=== PATIENT | female | born 1980 | race Caucasian/White ===

== ENCOUNTER 2019-06-06 05:17 | Inpatient (IN) | payer OTHER ==
[2019-06-05 08:22] VITALS: BMI 31.7
--- NOTE | 2019-06-05 14:35 | HP ---
REASON FOR ADMISSION: "I'm here to have my Chiari decompression." HISTORY OF PRESENT ILLNESS: Yolanda Bird is a very pleasant 39-year-old woman, who was sent for evaluation of an imaging finding notice and workup for headaches. MR imaging of the brain suggested tightness in the foramen magnum and Chiari malformation and she was sent for neurosurgical opinion. Any time she Valsalva's, she gets excruciating head pain and her vision gets blurry. This can be with lifting heavy objects or bearing down to move large obstacle. She has been seen by Ophthalmology and reportedly had some visual field issues. During her evaluation in our clinic, we thought she had a symptomatic Chiari malformation and recommended surgery for which she has presented today. PAST MEDICAL HISTORY: Abnormal Pap smear, arthritis, asthma allergies, headaches, heart disease, hypertension, and peptic ulcer disease. PAST SURGICAL HISTORY: Left knee surgery, right knee surgery, left rotator cuff repair, , D and C, tubal ligation, and hysterectomy. ADMISSION MEDICATIONS: 1. Hydrochlorothiazide. 2. Claritin. 3. Omeprazole. 4. Aleve. ALLERGIES: NO KNOWN DRUG ALLERGIES. FAMILY HISTORY: The patient's father is alive, but he has diabetes, hypertension, and heart disease. Her mother suffers from diabetes, hypertension, heart disease, and stroke. There is a strong family history of vascular risk factors. SOCIAL HISTORY: Ms. Bird used to smoke cigarettes, but has not had nicotine exposure in quite a number of years. She denies illicit drug use and alcohol use. REVIEW OF SYMPTOMS: Otherwise, negative. PHYSICAL EXAMINATION: Ms. Bird is 5 feet 8 inches. She weighs 220 pounds. Her cognitive function is normal. Her speech is fluent and was without dysarthria. Her cranial nerves were intact on our examination. She had no truncal ataxia. On motor examination, there was no pronator drift or other hint of lateralizing weakness. There are no neglect or any obvious cortical sensory deficits. There is no dermatomal sensory loss. IMAGING FINDINGS: An MRI scan of the brain revealed descent of the cerebellar tonsils about 15 mm into the spinal canal with tightness at the foramen magnum and no CSF space there. IMPRESSION: Chiari I malformation. PLAN: Ms. Bird is here for decompression of Chiari malformation, which we will perform today. We anticipate a hospital stay of 3 days most likely. Informed consent was obtained in the clinic and she has been cleared for anesthesia. Job ID: [id number]
[2019-06-06] MEDS ORDERED: Bupivacaine PF 0.5% 30 ML VIAL ONE (06:11)
[2019-06-06] MEDS ORDERED: Bacitracin Zinc Ointment 30 gm TUBE ONE (06:11)
[2019-06-06] MEDS ORDERED: Thrombin 5000 UNITS/5 ML VIAL ONE ×2 (06:11→10:17)
[2019-06-06] MEDS ORDERED: Fentanyl 100 MCG/2 ML VIAL ONE ×4 (06:14→13:48)
[2019-06-06] MEDS ORDERED: Levofloxacin 500 mg/D5W 100 ml Premix Bag ONE (06:16)
[2019-06-06] MEDS ORDERED: Clindamycin/D5W 900 mg/50 ml Premix Bag ONE (06:16)
[2019-06-06 06:38] LABS: #Basophils 0.1 thou/uL (0.0-0.2); #Eosinphils 0.1 thou/uL (0.0-0.7); #Lymphocytes 2.8 thou/uL (1.20-3.40); #Monocytes 0.7 thou/uL (0.11-0.59); #Neutrophils 3.7 thou/uL (1.40-6.50); %Basophils 1.1 % (0.0-1.0); %Eosinophils 1.6 % (0.0-10.0); %Lymphocytes 38.2 % (21.0-51.0); %Monocytes 8.9 % (0.0-10.0); %Neutrophils 50.3 % (42.0-75.0); Hemoglobin 15.2 g/dL (12.0-16.0); Mean Corpuscular HGB CONC 34.5 g/dL (32.0-36.0); Mean Corpuscular Hemoglobin 30.6 pg (27.0-31.0); Mean Corpuscular Volume 88.7 fL (78.0-98.0); Mean Platelet Volume 8.6 fL (7.4-10.4); Platelet Count 246 thou/uL (130-400); RBC Distribution Width 12.7 % (11.5-14.5); Red Blood Cell (RBC) Count 4.97 mill/uL (4.20-5.40); White Blood Cell (WBC) Count 7.4 thou/uL (4.8-10.8)
[2019-06-06 06:44] LABS: INR-International Normal Ratio 0.9; PTT 33.2 SEC (22.9-36.1); Prothrombin Time 12.1 SEC (12.0-14.7)
[2019-06-06] MEDS ORDERED: Ondansetron HCl/PF 4 MG/2 ML Vial IVP PRN ×2 (06:47→13:10)
[2019-06-06] MEDS ORDERED: Promethazine HCl 25 MG/ML VIAL SLOW IVP PRN ×2 (06:47→13:10)
[2019-06-06] MEDS ORDERED: Promethazine HCl 25 MG/ML VIAL IM PRN ×3 (06:47→13:10)
[2019-06-06 06:58] LABS: Anion Gap 14 mmol/L (10-20); BUN (Urea Nitrogen) 17 mg/dL (7.0-18.7); Calc. Creatinine Clearance 134 mL/min (70-130); Calcium 9.5 mg/dL (7.8-10.44); Carbon Dioxide 26 mmol/L (22-29); Chloride 105 mmol/L (98-107); Estimated GFR-MDRD 74; Glucose 93 mg/dL (70-105); Potassium 3.8 mmol/L (3.5-5.1); Sodium 141 mmol/L (136-145)
[2019-06-06] MEDS ORDERED: Lidocaine 0.5%/Epinephrine 1:200,000 50 ml Vial ONE (07:53)
[2019-06-06] MEDS ORDERED: PHENYLEPHRINE-NS 100 MCG/ML 10 ML SYRINGE ONE ×2 (08:20→12:52)
[2019-06-06] MEDS ORDERED: SUGAMMADEX SODIUM 500 MG/5 ML VIAL ONE (11:39)
[2019-06-06] MEDS ORDERED: ePHEDrine/0.9% NaCl/PF SYRINGE 50 mg/10 ml ONE (12:52)
[2019-06-06] MEDS ORDERED: PROPOFOL 200 MG/20 ML VIAL ONE (12:52)
[2019-06-06] MEDS ORDERED: Dexamethasone 20 MG/5 ML VIAL ONE (12:52)
[2019-06-06] MEDS ORDERED: Succinylcholine Chloride 20 MG/ML 10 ml SYRINGE FS ONE (12:52)
[2019-06-06] MEDS ORDERED: Rocuronium Bromide 10 MG/ML (10ML VIAL) ONE (12:52)
[2019-06-06] MEDS ORDERED: Ondansetron PF 4 MG/2 ML Vial ONE (12:52)
[2019-06-06] MEDS ORDERED: Lidocaine 1% PF 5 ML VIAL ONE (12:52)
[2019-06-06] MEDS ORDERED: hydrALAZINE 20 MG/ML VIAL SLOW IVP PRN (13:06)
[2019-06-06] MEDS ORDERED: Labetalol HCl 100 MG/20 ML VIAL SLOW IVP PRN (13:06)
[2019-06-06] MEDS ORDERED: Ondansetron PF 4 MG/2 ML Vial IVP PRN (13:06)
[2019-06-06] MEDS ORDERED: Promethazine HCl 12.5 MG SUPP PR PRN (13:06)
[2019-06-06] MEDS ORDERED: Fentanyl 100 MCG/2 ML VIAL SLOW IVP PRN (13:11)
[2019-06-06] MEDS ORDERED: diphenhydrAMINE 50 MG/ML VIAL IM PRN (13:36)
[2019-06-06] MEDS ORDERED: Zolpidem Tartrate 5 MG TAB PO PRN (13:36)
[2019-06-06] MEDS ORDERED: Naloxone HCl 0.4 mg/ml Vial IV PRN (13:36)
[2019-06-06] MEDS ORDERED: diphenhydrAMINE 50 MG/ML VIAL IVP PRN (13:36)
[2019-06-06] MEDS ORDERED: diphenhydrAMINE 25 MG CAP PO PRN (13:36)
--- NOTE | 2019-06-06 13:38 | OP ---
DATE OF PROCEDURE: 06/06/2019 CABLE WORKER HELPER: Dontrell Hernandez PA-C PREOPERATIVE INDICATION: Prevent neurological deterioration, treat pain. PREOPERATIVE DIAGNOSIS: Chiari I malformation with Valsalva headaches and visual disturbance with Valsalva. POSTOPERATIVE DIAGNOSIS: Chiari I malformation with Valsalva headaches and visual disturbance with Valsalva. PROCEDURE PERFORMED: Decompressive craniectomy, removal of the arch of C1 durotomy and dural patch graft for decompression of the Chiari malformation, operating microscope. PREOPERATIVE MEDICATION: Clindamycin 900 mg IV and Levaquin 500 mg IV. DRAIN NUMBER: Zero. DRAIN TYPE: None. DESCRIPTION OF PROCEDURE: The patient was brought to the operating room. General endotracheal anesthesia was induced. A Guzman pin and devulcanizer head were attached to the patient's head and the patient was carefully rolled into the prone position with her chest and hips supported by gel-filled chest rolls. The Guzman attachment for the operating table and mobilize the head. Hair was removed from the back of the suboccipital region with electric clippers. The neck was sterilely prepped and draped. We opened a midline incision with a 10 blade knife and controlled bleeding with bipolar and monopolar cautery. We used monopolar cautery to dissect through subcutaneous tissues to the ligamentum nuchae. We incised the ligament in the midline and dissected our way down to the suboccipital bone, the arch of C1 and spinous process and lamina of C2. A self-retaining retractor was placed. We carried the dissection laterally until we were at the lateral masses of C1 and C2 and all the suboccipital musculature was liberated from the occipital bone. We irrigated with bacitracin irrigation. We used a high-speed drill to thin the C1 lamina and then removed it with Kerrison rongeurs. We waxed the bone edges. We then brought a high-speed drill into the field. We used a perforating bit to place travis holes in the posterior fossa. We ensured the dura was free of the undersurface of the bone and then we removed suboccipital bone in a piecemeal fashion from the transverse sinuses all the way to the foramen magnum. We opened widely. We widely opened the foramen magnum until we were flushed with the condyles and could not go any farther laterally. We waxed the bone edges again. We irrigated with bacitracin irrigation. We then used a 15 blade knife through to open the dura. We opened the dura in a Y-shaped fashion with the two arms of the Y over the cerebellar hemispheres and the long root through the foramen magnum. The cerebellar tonsils were markedly compressed and there was thick arachnoid over them at the foramen magnum and extended below where the arch of C1 used to be. We opened the dura, passed to the cerebellar tonsils and we opened the arachnoid over the tonsils. This arachnoid dissection was done under the operating microscope. Under microscopic magnification and using microsurgical techniques, we dissected carefully between the cerebellar hemispheres. We visualized a choroid plexus and the floor of the fourth ventricle. Once we saw CSF egress from the floor of the fourth ventricle around the tonsils and down the spinal canal, we knew we had achieved the decompression we wanted. We turned our attention to patch graft closure. A bovine pericardial patch was brought into the field. It was cut and that was the dural defect that we had created. With a 6-0 Prolene, we closed the dura with our patch graft. This was done in a running fashion. Before the last few stitches were placed, we filled the dura with bacitracin irrigation. We closed the last few sutures and administered a Valsalva. There was no egress of fluid. We irrigated copiously with bacitracin irrigation. We reinforced our dural closure with DuraSeal tissue sealant. We treated the wound with vancomycin powder. We closed the wound in anatomical layers after removing the operating microscope. We applied a sterile dressing. This was a clean case, no contamination. Job ID: [id number]
[2019-06-06] MEDS ORDERED: Communication Order-Pharmacy FS SCH (13:45)
[2019-06-06] MEDS ORDERED: Promethazine HCl 25 MG/ML VIAL ONE (13:51)
[2019-06-06] MEDS: Clindamycin/D5W 900 MG in Premix Bag 1 BAG IVPB SCH ×2 (16:20→19:57)
[2019-06-06] MEDS: Sodium Chloride 0.9% 1,000 ML IV SCH (16:37)
[2019-06-06] MEDS: Ondansetron PF 4 MG/2 ML Vial IVP PRN (19:54)
[2019-06-06] MEDS ORDERED: PROVENTIL INHALER 6.7 G (200 INHALATIONS) INH PRN (20:13)
[2019-06-07] MEDS: Sodium Chloride 0.9% 1,000 ML IV SCH ×2 (00:36→19:07)
[2019-06-07] MEDS: Clindamycin/D5W 900 MG in Premix Bag 1 BAG IVPB SCH (02:09)
[2019-06-07] MEDS: Ondansetron PF 4 MG/2 ML Vial IVP PRN ×4 (04:11→20:25)
[2019-06-07] MEDS ORDERED: Dextrose 50% Abboject 50 ML SYRINGE SLOW IVP PRN (08:46)
[2019-06-07] MEDS ORDERED: Dextrose 5% in Water 1,000 ML IV PRN (08:46)
[2019-06-07] MEDS ORDERED: HumaLOG 300 UNITS/3 ML VIAL SC PRN (08:46)
--- NOTE | 2019-06-07 09:14 | PRG ---
DATE OF SERVICE: Ms. Bird is on the first day of her hospital stay and is postop day #[address] Adan. She has some significant posterior headaches that she would expect after the surgery and has some stiffness in in her neck and shoulder musculature. She is currently on PASSENGER BOOKING CLERK with fentanyl, but does not seem to be using this around the clock. She actually is quite restful according to the nurse who waking her up. Even though she appears comfortable and has been restful, states that she has 10/10 pain. She did have a bout of nausea, but this is improving after Zofran this morning. Vital signs are stable with some very slight tachycardia likely secondary to pain and maybe some anxiety. The patient states she was up in the chair last night briefly. I would like to see her up much more today. We will also transition her from her PASSENGER BOOKING CLERK pump to p.o. medications and transition her to the floor as soon as her pain is a little bit more tolerated. We will also have her ambulate and moving in the hallways with anticipated discharge likely tomorrow. I do not feel that at this time she notes any consultation with therapy other than to better evaluate and teach her gait and mobilization techniques for getting in and out of bed. We will also add Accu-Cheks and mild sliding scale insulin as needed. Job ID: [id number]
[2019-06-07] MEDS: Famotidine 20 MG TAB PO SCH (09:54)
[2019-06-07] MEDS: Amlodipine 5 MG TAB PO SCH (09:54)
[2019-06-07] MEDS: Hydrochlorothiazide 25 MG TAB PO SCH (09:54)
[2019-06-07] MEDS: Loratadine 10 MG TAB PO SCH (09:55)
--- NOTE | 2019-06-07 13:56 | CON ---
DATE OF CONSULTATION: 06/07/2019 Yolanda Bird is a 39-year-old female evaluated in the Critical Care Unit. She underwent surgical procedure for Chiari malformation. Her only complaint is a posterior headache. Apparently, this was discovered during a workup of her headaches. PAST MEDICAL HISTORY: Remarkable for 1. Arthritis. 2. History of asthma. 3. History of hypertension. 4. History of ulcer disease in the past. She has never been hospitalized here. FAMILY HISTORY: Negative for lung disease in early age. SOCIAL HISTORY: Non contributory. REVIEW OF SYSTEMS: 10 point review of systems completed, remarkable only for headache. ALLERGIES: SHE REPORTS ALLERGIES TO TYLENOL, XANAX, ASPIRIN, CODEINE, HYDROCODONE, HYDROMORPHONE, IODINE, MORPHINE, PENICILLIN, DILANTIN, SHELLFISH, SULFA, AND TRAMADOL. PHYSICAL EXAMINATION: GENERAL: She is in no distress. VITAL SIGNS: Afebrile. Heart rate is 107, respiratory rate 16, oximetry is 95 % on room air, blood pressure 139/89. HEENT: Pupils are equal. Sclerae are anicteric. NECK: Supple. LUNGS: Clear. HEART: Regular rhythm. S1, S2 normal. ABDOMEN: Soft and nontender. EXTREMITIES: Without clubbing, cyanosis, or edema. LABORATORY DATA: White count 7.4, hemoglobin 15.2, platelets 246. Electrolytes are normal. IMPRESSION: Status post decompression of Chiari malformation, clinically stable. It is anticipated she may be transferred out of Critical Care Unit. She is doing well with no respiratory issues and no secretion issues. We will sign off on transfer. This is a 70 minute consult, with greater than 50% of time spent on unit coordinating care. Job ID: [id number] [facility]
[2019-06-07] MEDS: Promethazine HCl 25 MG/ML VIAL IM PRN (18:36)
[2019-06-07 18:53] LABS: #Eosinphils 0.1 thou/uL (0.0-0.7); #Lymphocytes 1.5 thou/uL (1.20-3.40); #Monocytes 1.2 thou/uL (0.11-0.59); %Basophils 0.2 % (0.0-1.0); %Eosinophils 0.4 % (0.0-10.0); %Lymphocytes 10.1 % (21.0-51.0); %Neutrophils 81.4 % (42.0-75.0); Mean Corpuscular HGB CONC 31.9 g/dL (32.0-36.0); Mean Corpuscular Hemoglobin 29.8 pg (27.0-31.0); Mean Corpuscular Volume 93.5 fL (78.0-98.0); Platelet Count 224 thou/uL (130-400); RBC Distribution Width 13.3 % (11.5-14.5); Red Blood Cell (RBC) Count 4.69 mill/uL (4.20-5.40); White Blood Cell (WBC) Count 14.8 thou/uL (4.8-10.8)
[2019-06-07 19:16] LABS: ALT (SGPT) 21 U/L (8-55); AST (SGOT) 18 U/L (5-34); Alkaline Phosphatase 84 U/L (40-110); Anion Gap 12 mmol/L (10-20); BUN (Urea Nitrogen) 9 mg/dL (7.0-18.7); Bilirubin, Total 0.5 mg/dL (0.2-1.2); Calc. Creatinine Clearance 156 mL/min (70-130); Calcium 9.2 mg/dL (7.8-10.44); Carbon Dioxide 28 mmol/L (22-29); Chloride 99 mmol/L (98-107); Estimated GFR-MDRD 79; Globulin 3.3 g/dL (2.4-3.5); Glucose 132 mg/dL (70-105); Potassium 4.1 mmol/L (3.5-5.1); Protein, Total 7.3 g/dL (6.0-8.3); Sodium 135 mmol/L (136-145)
--- NOTE | 2019-06-07 20:25 | CON ---
DATE OF CONSULTATION: 06/07/2019 REASON FOR CONSULTATION: Medical comanagement. BRIEF HISTORY OF PRESENT ILLNESS: This is a 39-year-old female with a past medical history of hypertension, diabetes, remote history of seizures in the past, GERD , who was admitted to the hospital for a Chiari malformation decompression. The patient states that she was having chronic headaches, and over the past 2 weeks, she had noticed that her right arm and her right leg was numb. The patient also had reported some dizziness and lightheadedness with ambulation and numbness in her legs with ambulation. She was admitted for further workup. The patient underwent a Chiari 1 malformation decompressive craniectomy with removal of the arch of C1 and a dural patch graft on 06/06. Postoperatively, the patient is complaining of severe headache with nausea. She reports decreased appetite. This morning, the patient had a questionable syncopal event. The patient had ambulated to the bathroom, and while she was urinating, the patient reports that she was feeling flushed, nauseous, and had some chest discomfort. The next thing she remembers she when she woke up was on the toilet. She was told by a nursing staff that she had passed out and possibly had a seizure. According to nursing staff, the patient's head was bobbing, however, they did not notice any arm jerking. They also commented that the patient did not seem postictal and was responsive upon questioning. She also had a second event later in the afternoon with a similar presentation of head bobbing. Neurosurgery does not think that this is a seizure. The patient reports that her last seizure was 10 years ago, and she is not on any prophylactic medication for this. The patient has a history of hypertension and takes hydrochlorothiazide at home and amlodipine. She also reports a history of diabetes, however, she is not on any medication for her diabetes due to severe electrolyte imbalance. PAST MEDICAL HISTORY: Hypertension, type 2 diabetes, acid reflux, asthma. PAST SURGICAL HISTORY: Three C sections, cystoscopy, hysterectomy, tubal ligation, eight knee surgeries, left rotator arthroscopy and left shoulder surgery, cryotherapy for cervical cancer in the past. FAMILY HISTORY: Diabetes and hypertension. SOCIAL HISTORY: The patient lives with her sons who are 17 and 12. She has never smoked and has not drunk alcohol in the past. She denies any illicit drug use. CURRENT INPATIENT MEDICATIONS: 1. Sodium chloride at 75 an hour. 2. Amlodipine 5 mg p.o. daily. 3. Amlodipine 20 mg p.o. q.a.m. 4. Hydrochlorothiazide 12.5 mg p.o. daily. 5. Claritin 10 mg p.o. q.a.m. 6. Hydralazine 5 mg q.15 minute p.r.n. 7. Naloxone 0.2 mg IV q.5 minute p.r.n. 8. Benadryl 25 mg q.3 hours p.r.n. 9. Zofran 4 mg IV q.6 hours p.r.n. 10. Phenergan 12.5 mg p.o. q.4 hours p.r.n. 11. Ambien 5 mg p.o. at bedtime p.r.n. PHYSICAL EXAMINATION: VITAL SIGNS: Temperature 97.9, heart rate 108, respiratory rate 18, O2 saturation 97% on room air, blood pressure 126/86. GENERAL: The patient is alert, awake, and oriented x3. HEENT: The patient is status post craniectomy for Arnold-Chiari malformation. She does have some mild swelling on her head. NEUROLOGIC: Cranial nerves 2 through 12 are intact. The patient has 3/5 strength in her right upper extremity, left upper extremity is 5/5, right lower extremity is 5/5, left lower extremity is 5/5. The patient has diminished sensation to touch on the right upper extremity and the right lower extremity. The patient has decreased range of motion on her right upper extremity. Babinski sign is downgoing on the left, mute on the right. CVS: Regular rate and rhythm with no murmurs, rubs, or gallops. LUNGS: Clear to auscultation bilaterally. ABDOMEN: Obese, soft, nondistended, nontender, positive bowel sounds. EXTREMITIES: No edema. PERTINENT LABORATORY DATA: CBC on 06/07: white blood cell count 14.8, hemoglobin 14.0, hematocrit 43.0, platelet count 224. BMP on 06/07: sodium is 135, glucose 132. LFTs are normal. Rest of BMP is unremarkable. Prolactin : 7.39. ASSESSMENT AND PLAN: This is a 39-year-old female, who was admitted for Arnold-Chiari malformation. She is status post decompressive craniectomy with removal of arch of C1 durotomy and dural patch graft, postop day 2. 1. Arnold-Chiari malformation, status post craniectomy.: - ,management per Neurosurgery. The patient is status post IV clindamycin postoperatively. White blood cell count is up to 14.8, which is most likely expected after surgery. Continue to monitor for fevers. 2. Possible vasovagal syncope - We will check an EKG, most likely this is micturition related syncope. We will check orthostatics given that the patient was dizzy while ambulating. Prolactin level was normal, so this is not likely to be a seizure, however, if concern consists, consider an EEG or neuro consult. 3. Leukocytosis : White blood cell count is up to 14.8. There are no fevers currently. The patient has already received IV clindamycin prophylactically. We will check a UA and chest x-ray. 4. Hypertension: We will continue hydrochlorothiazide and amlodipine. 5. Type 2 diabetes: The patient is on a mild sliding scale. Her blood sugars are ranging from 132 to 173. We will continue with current management. 6. Hyponatremia. The patient's sodium is 135, which is mild. We will continue to monitor. 7. Gastroesophageal reflux disease: Continue Pepcid 20 mg p.o. q.a.m. 8. Asthma : Continue albuterol inhaler q.6 hours p.r.n. Thank you for this consult. We will continue to follow. Please call if there are any further questions. Job ID: [id number] [facility]TDD
[2019-06-07 22:20] LABS: Bacteria/HPF None Seen HPF (None Seen); Bilirubin Negative (Negative); Blood, Urine Negative (Negative); Clarity Clear (Clear); Glucose, Urine (Dipstick) Normal (Negative); Leukocyte Negative Leu/uL (Negative); Nitrite Negative (Negative); Protein, Urine (Dipstick) Negative (Neg-Trace); RBC/HPF 0-3 HPF (0-3); Squamous Epithelial 0-3 HPF (0-3); Urobilinogen Normal mg/dL (Less than 2); WBC/HPF 0-3 HPF (0-3)
--- NOTE | 2019-06-07 23:21 | RAD ---
RADIOGRAPH CHEST 1 VIEW: DATE: 06/07/2019 TIME: 10:51 PM HISTORY: 39-year-old female with leukocytosis COMPARISON: none FINDINGS: Obliquely horizontal band of subsegmental atelectasis or scar across right mid-lower lung zone from h ilum to lateral pleural surface. Effacement of left lateral costophrenic angle, nonspecific. The rest of the visualized lung elliott are clear. Inspiration is shallow with low lung volumes. No pneumo thorax or cardiomegaly. IMPRESSION: No conclusive evidence of pneumonia. Limited study.
[2019-06-08] MEDS: Sodium Chloride 0.9% 1,000 ML IV SCH ×2 (04:25→21:39)
[2019-06-08] MEDS: fentaNYL Citrate/PF 2,000 MCG in Sodium Chloride 0.9% 60 ML IV PRN (05:25)
[2019-06-08] MEDS: Ondansetron PF 4 MG/2 ML Vial IVP PRN (05:41)
--- NOTE | 2019-06-08 09:05 | PRG ---
DATE OF SERVICE: 06/08/2019 Ms. Bird is now postop day #2 [address] Chi[address] Adan. She has again considerable posterior neck pain with some headache, which is to be expected with this type of operation. She is still on CUSTOMER ORDER CLERK, then moved to the floor yesterday. She has had some continuous nausea, but this is treated well with Zofran. There was a concern yesterday about possible seizure event; however, there was no postictal. Thereafter, her prolactin levels drawn immediately after the event were also within normal limits. This may have represented some type of syncopal event or perhaps psychogenic issue, but certainly not true seizure activity. Her incisions this morning are dry, well-healing, nonerythematous, well approximated. Plan today will be to continue to mobilize that she has over the last 24 hours in the halls and to the bathroom with planning towards disposition hopefully for the next day or two. No additional complaints at this time. Job ID: [id number]
[2019-06-08] MEDS: Famotidine 20 MG TAB PO SCH (09:14)
[2019-06-08] MEDS: Hydrochlorothiazide 25 MG TAB PO SCH (09:15)
[2019-06-08] MEDS: Loratadine 10 MG TAB PO SCH (09:15)
[2019-06-08] MEDS: Amlodipine 5 MG TAB PO SCH (09:15)
--- NOTE | 2019-06-08 09:45 | PRG ---
DATE OF SERVICE: 06/08/2019 Ms. Bird is now 2 days status post Chiari decompression. She is transferred from the unit to the floor. She continues to report significant posterior surgical neck pain with headache, which is anticipated given the nature of her surgery. Her incision is clean and dry. She continues use a DISPLAY MECHANIC for pain control. She had an episode yesterday, where she and her mother believe she had had a seizure. After questioning the nurse and further investigation of the events, I do not believe she had a seizure. She was not postictal. She had no loss of consciousness. In my view, this likely represents a pseudo-seizure or some other psychiatric component to her baseline comorbidities. We have encouraged her to mobilize more. We will work toward transitioning her to oral pain medicines, although her allergies make that difficult. Once she is mobilizing well and she has adequate pain control, she can be discharged home. I do not perceive that happening this weekend. Job ID: [id number] MTDD
[2019-06-08 10:17] LABS: Anion Gap 15 mmol/L (10-20); BUN (Urea Nitrogen) 9 mg/dL (7.0-18.7); Calc. Creatinine Clearance 174 mL/min (70-130); Calcium 9.5 mg/dL (7.8-10.44); Carbon Dioxide 28 mmol/L (22-29); Chloride 91 mmol/L (98-107); Estimated GFR-MDRD 89; Glucose 123 mg/dL (70-105); Potassium 3.9 mmol/L (3.5-5.1); Sodium 130 mmol/L (136-145)
[2019-06-08 10:32] LABS: Hemoglobin 13.6 g/dL (12.0-16.0); Mean Corpuscular HGB CONC 34.2 g/dL (32.0-36.0); Mean Corpuscular Hemoglobin 30.8 pg (27.0-31.0); Mean Corpuscular Volume 90.3 fL (78.0-98.0); Platelet Count 222 thou/uL (130-400); RBC Distribution Width 12.9 % (11.5-14.5); Red Blood Cell (RBC) Count 4.41 mill/uL (4.20-5.40); White Blood Cell (WBC) Count 14.6 thou/uL (4.8-10.8)
[2019-06-08] MEDS: Promethazine HCl 25 MG/ML VIAL IM PRN (12:42)
[2019-06-08] MEDS ORDERED: Prochlorperazine 10 MG/2 ML VIAL IVP PRN (13:02)
--- NOTE | 2019-06-08 13:08 | PDOC.HOSPP ---
- Subjective Encounter Date: 06/08/19 Encounter Time: 12:00 Subjective: The patient reports severe burning headache, nausea, dizziness and lightheadedness. Denies floaters. Does have some light sensitivity She states discharge is coming out of her ear. Yesterday she had discharge from her incision but not today. She has history of anaphylaxis to penicillin, but has tolerated cephalexin in the past. She reports allergy to sulfa She still has weakness on her right arm and right leg and is limping while walking - Objective Vital Signs & Weight: Vital Signs (12 hours) Temp Pulse Resp BP BP BP Pulse Ox 06/08/19 12:00 98.6 F 88 16 137/83 06/08/19 09:15 125/77 06/08/19 07:40 98.3 F 80 12 125/77 94 L 06/08/19 05:13 94 L 06/08/19 03:14 98.1 F 106 H 16 143/88 H 94 L Weight Weight 235 lb 10.786 oz Most Recent Monitor Data Heart Rate from ECG 98 NIBP 129/85 NIBP BP-Mean 99 Respiration from ECG 17 SpO2 96 I&O: 06/07/19 06/08/19 06/09/19 06:59 06:59 06:59 Intake Total 1262 914.2 360 Output Total 2945 1480 Balance -1683 -565.8 360 Result Diagrams: 06/08/19 09:51 06/08/19 09:51 Additional Labs: Accuchecks 06/08/19 06/08/19 06/07/19 12:08 06:49 20:08 POC Glucose 153 H 130 H 128 H 06/07/19 15:55 POC Glucose 125 H Hospitalist ROS - Review of Systems Constitutional: denies: fever, chills Cardiovascular: denies: chest pain, palpitations - Medication Medications: Active Medications Generic Name Dose Route Start Last Admin Trade Name Freq PRN Reason Stop Dose Admin Amlodipine Besylate 5 mg 06/07/19 09:00 06/08/19 09:15 Norvasc PO 5 mg DAILY ABBEY Administration Famotidine 20 mg 06/07/19 09:00 06/08/19 09:14 Pepcid PO 20 mg QAM ABBEY Administration Sodium Chloride 1,000 mls @ 75 mls/hr 06/06/19 13:15 06/08/19 04:25 Normal Saline 0.9% IV 1,000 mls .[id number] ABBEY Administration Fentanyl Citrate 2,000 mcg/ 100 mls @ 0 mls/hr 06/06/19 13:36 06/08/19 05:25 Sodium Chloride IV 100 mls INF PRN Administration Pain As Directed Loratadine 10 mg 06/07/19 09:00 06/08/19 09:15 Claritin PO 10 mg QAM ABBEY Administration Ondansetron HCl 4 mg 06/06/19 13:36 06/08/19 05:41 Zofran IVP 4 mg Q6H PRN Administration Nausea/Vomiting Promethazine HCl 12.5 mg 06/06/19 13:36 06/08/19 12:42 Phenergan IM 12.5 mg Q4H PRN Administration Nausea/Vomiting - Exam General Appearance: NAD, awake alert Eye: PERRL, anicteric sclera ENT: normocephalic atraumatic, no oropharyngeal lesions ENT - other findings: Tympanic membrane erythematous bilaterally, bulging on left compared to rig Heart: RRR, no murmur, no gallops, no rubs Respiratory: CTAB, no wheezes, no rales, no ronchi Gastrointestinal: soft, non-tender, non-distended, normal bowel sounds Extremities: no edema Neurological - other findings: RUE 2/5, RLE 4/5, LUE 5/5, LLE 5/5 strength. Dec sensation right side Hosp A/P - Plan This is 39 year old female with Arnold chiari malformation s/p craniectomy POD2 Arnold Chiari Malformation s/p decompressive craniectomy day 2 - care and pain management per neurosurgery - PTOT Acute otitis media bilateral - patient's ears tender on inspection with bilateral erythema - given penicillin anaphylaxis, will start on doxycycline - WBC improved to 14.6 Migraine - patient with history of migraine, requesting migraine cocktail today - ordered toradol, benadryl, phenergan Hyponatremia - sodium has dropped to 130. HCTZ discontinued, will continue to monitor - check serum and urine osmolarity, rule out SIADH given brain surgery Possible vasovagal syncope - no further events today. EKG showed NSR with nonspecific T wave abnormality -UA negative, chest Xray unremarkable -orthostatic BP negative Type II Diabetes - continue sliding scale insulin GERD: continue pepcid Asthma: continue albuterol prn Dispo: umang FLORES
[2019-06-08] MEDS ORDERED: Doxycycline 100 MG CAP PO SCH (13:15)
[2019-06-08] MEDS ORDERED: Ketorolac Tromethamine 30 MG/ML VIAL IVP SCH (13:15)
[2019-06-08] MEDS: Doxycycline 100 MG CAP PO SCH (21:37)
[2019-06-09] MEDS ORDERED: Naproxen 500 MG TAB PO SCH (02:15)
[2019-06-09] MEDS ORDERED: Naproxen 500 MG TAB PO PRN (06:28)
[2019-06-09] MEDS: Ondansetron PF 4 MG/2 ML Vial IVP PRN ×3 (07:49→21:32)
[2019-06-09] MEDS: Famotidine 20 MG TAB PO SCH (07:52)
[2019-06-09] MEDS: Loratadine 10 MG TAB PO SCH (07:53)
[2019-06-09] MEDS: Amlodipine 5 MG TAB PO SCH (07:53)
[2019-06-09] MEDS: Sodium Chloride 0.9% 1,000 ML IV SCH (08:00)
--- NOTE | 2019-06-09 08:15 | PRG ---
DATE OF SERVICE: I saw Yolanda Bird in the hospital room this morning. She is 3 days out from Chiari decompression. Pain control was a major issue over the weekend. She reports a migraine that has started yesterday, but does not describe any preceding neurological events leading to her migraine. She said her headache was severe enough that limited her activity and that she was nauseated from it. Overnight, I do not see any fevers recorded. Blood pressures have been between the 110s and 140s maximum. Most of the readings are between the 110s to 120s. Examination is normal this morning. Pelon asked for Aleve/naproxen for pain control. So as long as she is well hydrated and we are following chemistry panel on a regular basis , I think it is reasonable to try. I did encourage her to move as progressive motion and activity will speed her recovery. I am going to add orders for more frequent Zofran doses. We will encourage mobilization and have her screen for inpatient rehab. Job ID: [id number] MTDD
[2019-06-09] MEDS: Doxycycline 100 MG CAP PO SCH ×2 (09:31→20:27)
[2019-06-09 10:15] LABS: Mean Corpuscular HGB CONC 31.2 g/dL (32.0-36.0); Mean Corpuscular Hemoglobin 27.8 pg (27.0-31.0); Mean Platelet Volume 8.2 fL (7.4-10.4); Platelet Count 274 thou/uL (130-400); RBC Distribution Width 12.7 % (11.5-14.5); Red Blood Cell (RBC) Count 5.04 mill/uL (4.20-5.40); White Blood Cell (WBC) Count 10.3 thou/uL (4.8-10.8)
[2019-06-09 10:24] LABS: Anion Gap 11 mmol/L (10-20); BUN (Urea Nitrogen) 11 mg/dL (7.0-18.7); Calc. Creatinine Clearance 164 mL/min (70-130); Calcium 10.4 mg/dL (7.8-10.44); Carbon Dioxide 37 mmol/L (22-29); Chloride 91 mmol/L (98-107); Estimated GFR-MDRD 84; Glucose 88 mg/dL (70-105); Potassium 3.8 mmol/L (3.5-5.1); Sodium 135 mmol/L (136-145)
[2019-06-09] MEDS: Promethazine 25 MG TAB PO PRN (10:30)
[2019-06-09] MEDS ORDERED: Ketorolac Tromethamine 30 MG/ML VIAL IVP SCH (13:30)
--- NOTE | 2019-06-09 15:24 | PDOC.HOSPP ---
- Subjective Encounter Date: 06/09/19 Encounter Time: 12:00 Subjective: She continues to report headaches. She says she was seen by ana lilia who thought it was spinal headache because headache was worst with laying down. SHe still has nausea, difficulty eating food due to the headache. Toradol helped for a few minutes She has taken propranolol in the past for migraine and was wondering about trying it but discussed it may lower her blood pressure Ears are no longer draining. She states antibiotics are helping with her earache - Objective Vital Signs & Weight: Vital Signs (12 hours) Temp Pulse Resp BP BP Pulse Ox 06/09/19 11:01 97.6 F 105 H 16 112/79 99 06/09/19 08:00 98.2 F 102 H 20 157/96 H 97 06/09/19 07:53 90 06/09/19 05:05 94 L Weight Weight 235 lb 10.786 oz Most Recent Monitor Data Heart Rate from ECG 98 NIBP 129/85 NIBP BP-Mean 99 Respiration from ECG 17 SpO2 96 I&O: 06/08/19 06/09/19 06/10/19 06:59 06:59 06:59 Intake Total 914.2 860 Output Total 1480 Balance -565.8 860 Result Diagrams: 06/09/19 09:41 06/09/19 09:41 Additional Labs: Accuchecks 06/09/19 06/09/19 06/08/19 11:45 05:50 19:52 POC Glucose 122 H 114 H 122 H 06/08/19 16:13 POC Glucose 115 H Hospitalist ROS - Review of Systems Constitutional: denies: fever, chills Respiratory: denies: cough, dry - Medication Medications: Active Medications Generic Name Dose Route Start Last Admin Trade Name Freq PRN Reason Stop Dose Admin Amlodipine Besylate 5 mg 06/07/19 09:00 06/09/19 07:53 Norvasc PO 5 mg DAILY ABBEY Administration Doxycycline Hyclate 100 mg 06/08/19 21:00 06/09/19 09:31 Vibramycin PO 100 mg BID ABBEY Administration Famotidine 20 mg 06/07/19 09:00 06/09/19 07:52 Pepcid PO 20 mg QAM ABBEY Administration Sodium Chloride 1,000 mls @ 75 mls/hr 06/06/19 13:15 06/09/19 08:00 Normal Saline 0.9% IV Not Given .[id number] ABBEY Fentanyl Citrate 2,000 mcg/ 100 mls @ 0 mls/hr 06/06/19 13:36 06/08/19 05:25 Sodium Chloride IV 100 mls INF PRN Administration Pain As Directed Ketorolac Tromethamine 30 mg 06/09/19 13:30 06/09/19 14:10 Toradol IVP 06/09/19 15:30 30 mg NOW ABBEY Administration Loratadine 10 mg 06/07/19 09:00 06/09/19 07:53 Claritin PO 10 mg QAM ABBEY Administration Ondansetron HCl 4 mg 06/06/19 13:36 06/09/19 14:10 Zofran IVP 4 mg Q6H PRN Administration Nausea/Vomiting Promethazine HCl 12.5 mg 06/06/19 13:06 06/09/19 10:30 Phenergan PO 12.5 mg Q4H PRN Administration Nausea/Vomiting Promethazine HCl 12.5 mg 06/06/19 13:36 06/08/19 12:42 Phenergan IM 12.5 mg Q4H PRN Administration Nausea/Vomiting - Exam General Appearance: NAD, awake alert Eye: PERRL, anicteric sclera ENT: normocephalic atraumatic, no oropharyngeal lesions ENT - other findings: tenderness to tragus pull and push Neck: supple, symmetric, no JVD, no thyromegaly Heart: RRR, no murmur, no gallops, no rubs Respiratory: CTAB, no wheezes, no rales, no ronchi Gastrointestinal: soft, non-tender, non-distended, normal bowel sounds Extremities: no cyanosis, no clubbing, no edema Hosp A/P - Plan This is 39 year old female with Arnold chiari malformation s/p craniectomy POD2 Arnold Chiari Malformation s/p decompressive craniectomy day 3 - care and pain management per neurosurgery - PTOT Acute otitis media bilateral - patient's ears tender on inspection with bilateral erythema - given penicillin anaphylaxis, continue doxycycline day 2 - WBC down to 10.3 Migraine Headache - spinal vs postop - patient with history of migraine, on naproxen by neurosurgery. Given one dose IV toradol - on benadryl and phenergan prn - if headache spinal related, consideration of epidural blood patch vs neuro consult? Defer to neurosurgery and anasthesia Hyponatremia - likely dehydration - sodium improved to 135 with IV fluids - hold diuretic Possible vasovagal syncope - no further events today. EKG showed NSR with nonspecific T wave abnormality -UA negative, chest Xray unremarkable -orthostatic BP negative Type II Diabetes - continue sliding scale insulin GERD: continue pepcid Asthma: continue albuterol prn Dispo: per NS
[2019-06-09] MEDS ORDERED: Polyethylene Glycol 3350 17 GM Packet PO PRN (18:57)
[2019-06-09] MEDS: fentaNYL Citrate/PF 2,000 MCG in Sodium Chloride 0.9% 60 ML IV PRN (18:58)
[2019-06-10] MEDS: Promethazine HCl 25 MG/ML VIAL IM PRN (00:03)
[2019-06-10 05:31] LABS: Anion Gap 12 mmol/L (10-20); BUN (Urea Nitrogen) 16 mg/dL (7.0-18.7); Calc. Creatinine Clearance 167 mL/min (70-130); Calcium 9.5 mg/dL (7.8-10.44); Carbon Dioxide 28 mmol/L (22-29); Chloride 99 mmol/L (98-107); Estimated GFR-MDRD 85; Glucose 105 mg/dL (70-105); Potassium 3.5 mmol/L (3.5-5.1); Sodium 135 mmol/L (136-145)
[2019-06-10] MEDS: Sodium Chloride 0.9% 1,000 ML IV SCH ×2 (05:46→09:59)
--- NOTE | 2019-06-10 07:14 | PRG ---
DATE OF SERVICE: 06/10/2019 I saw Ms. Bird on rounds this morning. She is asleep as I entered the room, but was easily aroused from sleep. She has a washcloth on her forehead. Complains of headache that is a bit difficult to control, but she was able to walk more yesterday than she had over the entire weekend. She made it to the hallway four times, each time moving a bit farther than the previous walk. Her sublingual Zofran, at twice a dose previously given, seemed to help. Among the electronically recorded vital signs, I do not see any fevers. Blood pressures have been recorded between 110s and 150s. I do not find any new neurological deficits. Her incision is well-approximated. The plan is to mobilize Ms. Bird more. I think she is holding her head still and allowing the muscle spasm to worsen. She can slowly move it [id number] which will help. Her head pain is worse lying down and better up. This is not the pattern of a spinal headache and a blood patch will not help. Postoperative pain management Chiari I decompression are one of the most difficult management issues in our practice and that we were appreciative of the help with the Pain Management Service. The goal today is to slowly transition off IV pain medicine to oral medicine. Her intolerance to so many medications makes this a difficult task indeed. If she cannot become independent for activities of daily living in a reasonable amount of time, then a short stay in rehab is recommended. Hopefully, she can be approved for that. Job ID: [id number] MTDD
[2019-06-10] MEDS: Loratadine 10 MG TAB PO SCH (09:34)
[2019-06-10] MEDS: Famotidine 20 MG TAB PO SCH (09:34)
[2019-06-10] MEDS: Amlodipine 5 MG TAB PO SCH (09:35)
--- NOTE | 2019-06-10 10:35 | EKG ---
Test Reason : ROUTINE Blood Pressure : / mmHG Vent. Rate : 091 BPM Atrial Rate : 091 BPM P-R Int : 144 ms QRS Dur : 086 ms QT Int : 334 ms P-R-T Axes : 066 044 005 degrees QTc Int : 410 ms Normal sinus rhythm with sinus arrhythmia Nonspecific T wave abnormality Abnormal ECG No previous ECGs available Confirmed by TABITHA SIMS (2) on 06/10/2019 10:35:28 AM Referred By: ELAINE BLAIR Confirmed By:TABITHA SIMS
[2019-06-10] MEDS ORDERED: Fentanyl 100 MCG/2 ML VIAL SLOW IVP PRN (12:16)
[2019-06-10] MEDS: Ondansetron PF 4 MG/2 ML Vial IVP PRN ×2 (12:18→22:19)
[2019-06-10] MEDS: Doxycycline 100 MG CAP PO SCH ×2 (12:27→21:29)
--- NOTE | 2019-06-10 13:08 | PDOC.HOSPP ---
- Subjective Encounter Date: 06/10/19 Encounter Time: 12:00 Subjective: Headache: The patient is doing better. States that she hit her head on a door while walking with PT and is having terrible headache because of that. No photophobia, nausea or vomiting. THe patient has walked four times with physical therapy today and is doing better. Naproxen helps some but she only gets it once a day. She states anasthesia will be taking her off the OYSTERMAN and transitioning over to oral pain medications Otitis media: Ear pain is better, but still painful on the left ear compared to the right. Continues to have numbness on the right side. She does have history of allergies and takes claritin religiously, but states she is not sure if it works anymore. HTN: patient states that her BP was low today, she did not receive her antihypertensives. SHe says she takes them at home prn. - Objective Vital Signs & Weight: Vital Signs (12 hours) Temp Pulse Resp BP BP BP Pulse Ox 06/10/19 12:09 97.8 F 104 H 20 119/88 94 L 06/10/19 09:35 92 98/86 06/10/19 08:30 98 06/10/19 07:20 97.8 F 92 18 98/86 98 06/10/19 03:44 97.8 F 101 H 18 94/60 96 Weight Weight 235 lb 10.786 oz Most Recent Monitor Data Heart Rate from ECG 98 NIBP 129/85 NIBP BP-Mean 99 Respiration from ECG 17 SpO2 96 I&O: 06/09/19 06/10/19 06/11/19 06:59 06:59 06:59 Intake Total 860 1060 Output Total 100 Balance 860 960 Result Diagrams: 06/09/19 09:41 06/10/19 04:40 Additional Labs: Accuchecks 06/10/19 06/10/19 06/09/19 11:14 05:30 20:46 POC Glucose 118 H 100 117 H 06/09/19 16:45 POC Glucose 108 Hospitalist ROS - Review of Systems Constitutional: denies: fever, chills Cardiovascular: denies: chest pain, palpitations - Medication Medications: Active Medications Generic Name Dose Route Start Last Admin Trade Name Freq PRN Reason Stop Dose Admin Amlodipine Besylate 5 mg 06/07/19 09:00 06/10/19 09:35 Norvasc PO Not Given DAILY ABBEY Doxycycline Hyclate 100 mg 06/08/19 21:00 06/10/19 12:27 Vibramycin PO 100 mg BID ABBEY Administration Famotidine 20 mg 06/07/19 09:00 06/10/19 09:34 Pepcid PO 20 mg QAM ABBEY Administration Sodium Chloride 1,000 mls @ 75 mls/hr 06/06/19 13:15 06/10/19 09:59 Normal Saline 0.9% IV Not Given .[id number] ABBEY Loratadine 10 mg 06/07/19 09:00 06/10/19 09:34 Claritin PO 10 mg QAM ABBEY Administration Ondansetron HCl 4 mg 06/06/19 13:36 06/10/19 12:18 Zofran IVP 4 mg Q6H PRN Administration Nausea/Vomiting Promethazine HCl 12.5 mg 06/06/19 13:06 06/09/19 10:30 Phenergan PO 12.5 mg Q4H PRN Administration Nausea/Vomiting Promethazine HCl 12.5 mg 06/06/19 13:36 06/10/19 00:03 Phenergan IM 12.5 mg Q4H PRN Administration Nausea/Vomiting - Exam General Appearance: NAD, awake alert Eye: PERRL, anicteric sclera ENT: normocephalic atraumatic, no oropharyngeal lesions ENT - other findings: patient has frontal, and max sinus tenderness and on ear Neck: no JVD Heart: RRR, no murmur, no gallops, no rubs Respiratory: CTAB, no wheezes, no rales, no ronchi Gastrointestinal: soft, non-tender, non-distended, no palpable masses Extremities: no cyanosis, no clubbing, no edema Neurological - other findings: RUE 2/5 strength, RLE 5/5. Diminished sensation RUE and RLE Musculoskeletal: normal tone, normal strength, no muscle wasting Hosp A/P - Plan This is 39 year old female with Arnold chiari malformation s/p craniectomy POD2 Arnold Chiari Malformation s/p decompressive craniectomy day 4 - care and pain management per neurosurgery - PTOT - patient to ambulate 4-5 times per day Acute otitis media bilateral - continue doxycycline day 3, for total 7 days Hypertension - will decrease amlodipine to 2.5 mg daily Allergies - on claritin 10 mg daily. Will add zyrtec 5 mg qpm Migraine - patient with history of migraine, on naproxen by neurosurgery. Will increase to BID naproxen - on benadryl and phenergan prn Hyponatremia - likely dehydration - sodium 135, continue holding diuretic Possible vasovagal syncope - no further events. EKG showed NSR with nonspecific T wave abnormality -UA negative, chest Xray unremarkable -orthostatic BP negative Type II Diabetes - continue sliding scale insulin, controlled GERD: continue pepcid Asthma: continue albuterol prn Dispo: per NS
[2019-06-10] MEDS: Naproxen 500 MG TAB PO SCH (21:28)
[2019-06-10] MEDS: Loratadine 5 MG/5 ML UDCUP PO SCH (22:20)
[2019-06-11] MEDS: Sodium Chloride 0.9% 1,000 ML IV SCH ×2 (00:28→12:35)
--- NOTE | 2019-06-11 07:46 | PRG ---
DATE OF SERVICE: 06/11/2019 Ms. Bird is 5 days out from Chiari I decompression. I do not see an IV pole next to her, so she is off her IV pain medication. She tells me she has had injections of Ultram. All her vital signs have been stable since her admission. Her blood pressure is down compared to readings over the past few days. Her neurological function is quite good. I have recommended that Ms. Bird continue to move her head. Continue therapy and when she has pain well controlled on oral analgesics only, she can be discharged home. Job ID: [id number]
[2019-06-11] MEDS: traMADol HCl 50 MG TAB PO PRN ×3 (08:43→21:01)
[2019-06-11] MEDS: Naproxen 500 MG TAB PO SCH ×2 (08:44→20:53)
[2019-06-11] MEDS: Loratadine 10 MG TAB PO SCH (08:44)
[2019-06-11] MEDS: Famotidine 20 MG TAB PO SCH (08:44)
[2019-06-11] MEDS: Doxycycline 100 MG CAP PO SCH ×2 (08:44→20:54)
[2019-06-11] MEDS: Ondansetron ODT 8 MG TAB SL PRN (09:09)
[2019-06-11 10:18] LABS: Hemoglobin 13.2 g/dL (12.0-16.0); Mean Corpuscular HGB CONC 33.7 g/dL (32.0-36.0); Mean Corpuscular Hemoglobin 30.7 pg (27.0-31.0); Mean Corpuscular Volume 91.2 fL (78.0-98.0); Mean Platelet Volume 7.9 fL (7.4-10.4); Platelet Count 256 thou/uL (130-400); RBC Distribution Width 12.7 % (11.5-14.5)
[2019-06-11] MEDS: Amlodipine 5 MG TAB PO SCH (10:19)
[2019-06-11 10:44] LABS: Anion Gap 15 mmol/L (10-20); BUN (Urea Nitrogen) 13 mg/dL (7.0-18.7); Calc. Creatinine Clearance 156 mL/min (70-130); Calcium 9.1 mg/dL (7.8-10.44); Carbon Dioxide 30 mmol/L (22-29); Chloride 97 mmol/L (98-107); Estimated GFR-MDRD 79; Glucose 91 mg/dL (70-105); Potassium 4.1 mmol/L (3.5-5.1); Sodium 138 mmol/L (136-145)
[2019-06-11] MEDS: Promethazine 25 MG TAB PO PRN (13:11)
--- NOTE | 2019-06-11 15:33 | PDOC.HOSPP ---
- Subjective Encounter Date: 06/11/19 Encounter Time: 15:31 Subjective: The patient continues to have severe headache from hitting her head yesterday. She still has left ear pain, feels there is fluid in there that is about a rupture. She has nerve pain in her legs, wants to try gabapentin but wasn't sure if she was allergic - Objective Vital Signs & Weight: Vital Signs (12 hours) Temp Pulse Resp BP BP BP Pulse Ox 06/11/19 11:39 98.1 F 102 H 16 114/81 92 L 06/11/19 10:19 98 119/86 06/11/19 08:43 94 L 06/11/19 07:20 97.6 F 98 16 119/86 94 L 06/11/19 04:26 97.9 F 92 16 97/62 95 Weight Weight 235 lb 10.786 oz Most Recent Monitor Data Heart Rate from ECG 98 NIBP 129/85 NIBP BP-Mean 99 Respiration from ECG 17 SpO2 96 I&O: 06/10/19 06/11/19 06/12/19 06:59 06:59 06:59 Intake Total 1060 1375 Output Total 100 Balance 960 1375 Result Diagrams: 06/11/19 10:11 06/11/19 10:11 Additional Labs: Accuchecks 06/11/19 06/11/19 06/10/19 10:11 06:16 20:57 POC Glucose 91 94 106 06/10/19 15:13 POC Glucose 102 Hospitalist ROS - Review of Systems Constitutional: denies: fever, chills - Medication Medications: Active Medications Generic Name Dose Route Start Last Admin Trade Name Chao PRN Reason Stop Dose Admin Amlodipine Besylate 2.5 mg 06/11/19 09:00 06/11/19 10:19 Norvasc PO Not Given DAILY ABBEY Doxycycline Hyclate 100 mg 06/08/19 21:00 06/11/19 08:44 Vibramycin PO 100 mg BID ABBEY Administration Famotidine 20 mg 06/07/19 09:00 06/11/19 08:44 Pepcid PO 20 mg QAM ABBEY Administration Fentanyl 50 mcg 06/10/19 12:16 06/10/19 18:17 Sublimaze SLOW IVP 50 mcg Q1H PRN Administration BREAKTHRU PAIN Loratadine 10 mg 06/07/19 09:00 06/11/19 08:44 Claritin PO 10 mg QAM ABBEY Administration Loratadine 5 mg 06/10/19 21:00 06/10/19 22:20 Claritin Oral Solution PO 5 mg QPM ABBEY Administration Naproxen 500 mg 06/10/19 21:00 06/11/19 08:44 Naprosyn PO 500 mg BID ABBEY Administration Ondansetron HCl 4 mg 06/06/19 13:36 06/10/19 22:19 Zofran IVP 4 mg Q6H PRN Administration Nausea/Vomiting Ondansetron HCl 8 mg 06/09/19 06:24 06/11/19 09:09 Zofran Odt SL 8 mg QIDPRN PRN Administration Nausea/Vomiting Promethazine HCl 12.5 mg 06/06/19 13:06 06/11/19 13:11 Phenergan PO 12.5 mg Q4H PRN Administration Nausea/Vomiting Promethazine HCl 12.5 mg 06/06/19 13:36 06/10/19 00:03 Phenergan IM 12.5 mg Q4H PRN Administration Nausea/Vomiting Sodium Chloride 10 ml 06/06/19 13:06 06/10/19 18:19 Flush - Normal Saline IVF 10 ml PRN PRN Administration Saline Flush Tramadol HCl 100 mg 06/10/19 12:15 06/11/19 15:10 Ultram PO 100 mg Q6H PRN Administration Pain - Exam General Appearance: NAD, awake alert Eye: PERRL, anicteric sclera ENT: normocephalic atraumatic, no oropharyngeal lesions ENT - other findings: left tympanic membrane erythema with possible mild fluid. Right tymp erythe Neck: supple, no JVD Neck - other findings: surgical incisions on head Heart: RRR, no murmur, no gallops, no rubs Respiratory: CTAB, no wheezes, no rales, no ronchi Gastrointestinal: soft, non-tender, non-distended, normal bowel sounds Extremities: no cyanosis, no clubbing, no edema Skin: normal turgor, no lesions, no rashes Neurological: cranial nerve grossly intact, no focal deficits Neurological - other findings: RUE 3/5, RLE 3/5. Dec sensation on right arm and right leg Musculoskeletal: normal tone, normal strength, no muscle wasting Hosp A/P - Plan This is 39 year old female with Arnold chiari malformation s/p craniectomy POD2 Arnold Chiari Malformation s/p decompressive craniectomy day 5 - care and pain management per neurosurgery - PTOT - patient to ambulate 4-5 times per day Acute otitis media bilateral - continue doxycycline day 4, for total 7 days - check CT sinus due to persistent ear pain/sinus congestion Migraine - patient with history of migraine, on naproxen by neurosurgery. Continue naproxen [address] head due to worsening headache - on benadryl and phenergan prn Hypertension - will decrease amlodipine to 2.5 mg daily - d/c IV fluids Allergies - on claritin 10 mg daily. Continue zyrtec 5 mg qpm Hyponatremia - resolved Possible vasovagal syncope - no further events. EKG showed NSR with nonspecific T wave abnormality -UA negative, chest Xray unremarkable -orthostatic BP negative Type II Diabetes - continue sliding scale insulin, controlled GERD: continue pepcid Asthma: continue albuterol prn Dispo: per NS
[2019-06-11] MEDS ORDERED: Gabapentin 100 MG CAP PO SCH (15:45)
--- NOTE | 2019-06-11 17:43 | CT ---
Exam: Head CT without contrast HISTORY: Headache, after hitting head on door. Postoperative patient. Simple craniectomy. COMPARISON: none FINDINGS: Hemorrhage: No intraparenchymal hemorrhage or extra-axial hematoma. Brain parenchyma: Cortical brown-white matter differentiation is preserved. No mass effect or midline shift. Basilar cisterns are patent. Postsurgical change: Occipital craniectomy. There is fluid and air at the operative site, presumed to be postoperative. Possibility of a CSF leak is less favored but cannot be excluded at this time. Ventricular system: Ventricles and sulci are patent and symmetric. Calvarium: Intact. Sinuses and mastoid air cells: Adequate aeration. IMPRESSION: 1. No acute intracranial process 2. Postoperative changes compatible with occipital craniectomy. Fluid attenuation and air attenuation is presumed to be postoperative. Possibility of a CSF leak is less favored but cannot be excluded.
--- NOTE | 2019-06-11 17:46 | CT ---
CT OF THE PARANASAL SINUSES INDICATON: LEFT EAR PAIN, SINUS PAIN, AND SENSATION OF FLUID: 06/11/19 COMPARISON: None. FINDINGS: The paranasal sinuses are clear. No displaced facial fracture is grossly evident within the visualize d field. The osseous nasal septum is midline. There are mild hugo bullosa seen involving the middle turbinates. Orbital rims are intact. Orbital contents are within normal limits. The visualized aspec ts of the report clerk space and parapharyngeal space is normal appearing. The visualized intracranial contents are unremarkable appearing. The visualized mastoid air cells are clear. The visualized aspec ts of the middle ear cavity are clear. The upper nasopharynx appears within normal limits. Dental ama lgam slightly limits evaluation of the oral cavity. IMPRESSION: No significant paranasal sinus disease. POS: BH
[2019-06-11] MEDS ORDERED: Benzocaine (Dental) 20% 10 gm Tube TOP PRN (18:45)
[2019-06-11] MEDS: Gabapentin 100 MG CAP PO SCH (20:53)
[2019-06-11] MEDS: tiZANidine HCl 4 MG TAB PO SCH (20:53)
[2019-06-11] MEDS: Loratadine 5 MG/5 ML UDCUP PO SCH (20:54)
[2019-06-12] MEDS: traMADol HCl 50 MG TAB PO PRN ×2 (05:24→13:38)
[2019-06-12 06:11] LABS: Anion Gap 11 mmol/L (10-20); BUN (Urea Nitrogen) 12 mg/dL (7.0-18.7); Calc. Creatinine Clearance 164 mL/min (70-130); Carbon Dioxide 33 mmol/L (22-29); Chloride 99 mmol/L (98-107); Estimated GFR-MDRD 84; Glucose 91 mg/dL (70-105); Potassium 3.7 mmol/L (3.5-5.1); Sodium 139 mmol/L (136-145)
--- NOTE | 2019-06-12 07:31 | PRG ---
DATE OF SERVICE: 06/12/2019 Ms. Bird is 6 days out from Chiari decompression. She still has head pain and neck pain as we expected. She has been ambulatory. We gave her Zanaflex and Ultram for pain control yesterday and she has been able to tolerate her pain control regimen with oral medicines only and has not needed IM or IV injections. She is amenable to discharge today. She noted a small amount of drainage from the incision. I do not see any fevers recorded among her electronic vital signs. I reviewed her blood pressures and they are all within normal limits. Her neurological function is good. The incision is well-approximated and completely dry. This morning, the pillow on which she is resting her head is likewise dry and without any drainage whatsoever. Ms. Bird has been instructed on wound care. Followup arrangements have been made already. [place] will be removed on the . At that appointment, we will write orders for outpatient physical and occupational therapy and in the meantime, she is going to walk frequently at home. Our PT and OT team will give her some exercises to do for the next week. Call-in medications will include Ultram and Zanaflex. She is ready for discharge. Job ID: [id number] MTDD
[2019-06-12 08:30] VITALS: TEMP 97.7
[2019-06-12] MEDS: Gabapentin 100 MG CAP PO SCH (08:54)
[2019-06-12] MEDS: Loratadine 10 MG TAB PO SCH (08:54)
[2019-06-12] MEDS: tiZANidine HCl 4 MG TAB PO SCH (08:54)
[2019-06-12] MEDS: Naproxen 500 MG TAB PO SCH (08:54)
[2019-06-12] MEDS: Famotidine 20 MG TAB PO SCH (08:55)
[2019-06-12] MEDS: Amlodipine 5 MG TAB PO SCH (08:55)
[2019-06-12] MEDS: Ondansetron ODT 8 MG TAB SL PRN (08:55)
[2019-06-12] MEDS: Doxycycline 100 MG CAP PO SCH (09:20)
[2019-06-12 11:59] VITALS: BP 98/65
[2019-06-12] MEDS: Promethazine 25 MG TAB PO PRN (13:38)
== END 2019-06-12 14:02 | disposition home or self-care (01) | DRG 26 ==
LOC: SURG A 05:17 → EDSTATUS 14:32 → CCU 15:37 → SJJU 06-07 11:05
PROVIDERS: ADMIT Neurological Surgery; ATTEND Neurological Surgery
PROC: 00NC0ZZ Release Cerebellum, Open Approach (ICD-10-PCS; principal; 2019-06-06)
PROC: 00U20JZ Supplement Dura Mater with Synthetic Substitute, Open Approach (ICD-10-PCS; 2019-06-06)
DX: G93.5 Compression of brain (principal); E87.1 Hypo-osmolality and hyponatremia; F17.210 Nicotine dependence, cigarettes, uncomplicated; J45.909 Unspecified asthma, uncomplicated; M19.90 Unspecified osteoarthritis, unspecified site; H66.93 Otitis media, unspecified, bilateral; G43.909 Migraine, unspecified, not intractable, without status migrainosus; E11.9 Type 2 diabetes mellitus without complications; K21.9 Gastro-esophageal reflux disease without esophagitis; Z79.899 Other long term (current) drug therapy; Z90.710 Acquired absence of both cervix and uterus; Z87.11 Personal history of peptic ulcer disease; Z88.0 Allergy status to penicillin; Z88.6 Allergy status to analgesic agent; Z91.040 Latex allergy status; Z79.1 Long term (current) use of non-steroidal anti-inflammatories (NSAID); Z79.51 Long term (current) use of inhaled steroids
CPT/HCPCS: 36415; 36416; 70450; 71045; 80048; 80053; 81001; 83930; 83935; 84146; 84300; 85025; 85027; 85610; 85730; 86850; 86900; 86901; 93005; 93010; J1100; J1885; J1956; J2001; J2405; J2550; J2704; J3010; J3370; J3490; Q0169; S0020

== ENCOUNTER 2019-06-24 18:34 | Emergency (ER) | payer OTHER ==
[2019-06-24] MEDS ORDERED: diphenhydrAMINE 50 MG/ML VIAL ONE (21:00)
[2019-06-24] MEDS ORDERED: Promethazine HCl 25 MG/ML VIAL ONE (21:00)
[2019-06-24 21:06] LABS: #Basophils 0.1 thou/uL (0.0-0.2); #Eosinphils 0.2 thou/uL (0.0-0.7); #Lymphocytes 1.8 thou/uL (1.20-3.40); #Monocytes 0.4 thou/uL (0.11-0.59); #Neutrophils 3.2 thou/uL (1.40-6.50); %Basophils 1.4 % (0.0-1.0); %Eosinophils 3.7 % (0.0-10.0); %Lymphocytes 31.6 % (21.0-51.0); %Monocytes 7.2 % (0.0-10.0); %Neutrophils 56.1 % (42.0-75.0); Hemoglobin 12.8 g/dL (12.0-16.0); Mean Corpuscular HGB CONC 33.2 g/dL (32.0-36.0); Mean Corpuscular Hemoglobin 29.9 pg (27.0-31.0); Mean Corpuscular Volume 90.1 fL (78.0-98.0); Mean Platelet Volume 8.1 fL (7.4-10.4); Platelet Count 252 thou/uL (130-400); RBC Distribution Width 12.7 % (11.5-14.5); Red Blood Cell (RBC) Count 4.27 mill/uL (4.20-5.40); White Blood Cell (WBC) Count 5.6 thou/uL (4.8-10.8)
[2019-06-24 21:19] LABS: ALT (SGPT) 20 U/L (8-55); AST (SGOT) 14 U/L (5-34); Alkaline Phosphatase 90 U/L (40-110); Anion Gap 10 mmol/L (10-20); BUN (Urea Nitrogen) 14 mg/dL (7.0-18.7); Bilirubin, Total 0.3 mg/dL (0.2-1.2); Calc. Creatinine Clearance 0 mL/min (70-130); Calcium 9.4 mg/dL (7.8-10.44); Carbon Dioxide 29 mmol/L (22-29); Chloride 105 mmol/L (98-107); Estimated GFR-MDRD 66; Globulin 3.2 g/dL (2.4-3.5); Glucose 101 mg/dL (70-105); Potassium 3.7 mmol/L (3.5-5.1); Protein, Total 7.2 g/dL (6.0-8.3); Sodium 140 mmol/L (136-145)
--- NOTE | 2019-06-24 21:24 | CT ---
CT Brain WO Con History: Headache. Craniotomy 3 weeks ago. Comparison: CT brain June 11, 2019 Findings: Findings of suboccipital decompression, relatively recent. Small seroma in the midline. No acute hemorrhage. No midline shift. No mass effect. Sinuses sinuses and mastoids are clear. Impression: Evidence of recent suboccipital craniotomy with similar ovoid fluid collection in the mid line posterior soft tissues likely a seroma although CSF leak is not entirely excluded.
[2019-06-24 21:26] LABS: Pregs Control Background? CLEAR/WHITE (CLR/WHITE); Pregs Control Bar Appear? YES (CONTROL BAR)
[2019-06-24 21:28] LABS: BHCG - Serum POSITIVE (NEGATIVE)
== END 2019-06-24 23:41 | disposition home or self-care (01) ==
LOC: ERS 18:34
DX: G89.18 Other acute postprocedural pain (principal); R51 Headache; R11.2 Nausea with vomiting, unspecified; J45.909 Unspecified asthma, uncomplicated; E11.9 Type 2 diabetes mellitus without complications; I10 Essential (primary) hypertension; Z79.51 Long term (current) use of inhaled steroids; Z79.899 Other long term (current) drug therapy; Z79.891 Long term (current) use of opiate analgesic
CPT/HCPCS: 36415; 70450; 80053; 84702; 84703; 85025; 94760; 96365; 96366; 96375; J1200; J2550

== ENCOUNTER 2019-07-28 17:04 | Emergency (ER) | payer OTHER ==
[2019-07-28] MEDS ORDERED: Naproxen 500 MG TAB ONE (18:49)
== END 2019-07-28 19:00 | disposition home or self-care (01) ==
LOC: ERS 17:04
DX: G97.82 Other postprocedural complications and disorders of nervous system (principal); G96.19 Other disorders of meninges, not elsewhere classified; J45.909 Unspecified asthma, uncomplicated; I10 Essential (primary) hypertension; Z79.899 Other long term (current) drug therapy
CPT/HCPCS: 99284

== ENCOUNTER 2019-07-31 14:18 | Inpatient (IN) | payer OTHER ==
[2019-07-31] MEDS ORDERED: traMADol HCl 50 MG TAB PO PRN ×2 (16:12)
[2019-07-31] MEDS ORDERED: Ondansetron PF 4 MG/2 ML Vial SLOW IVP PRN (16:12)
[2019-07-31] MEDS ORDERED: tiZANidine HCl 4 MG TAB PO PRN (16:12)
[2019-07-31 16:23] LABS: #Basophils 0.1 thou/uL (0.0-0.2); #Eosinphils 0.1 thou/uL (0.0-0.7); #Lymphocytes 2.2 thou/uL (1.20-3.40); #Monocytes 0.5 thou/uL (0.11-0.59); #Neutrophils 3.8 thou/uL (1.40-6.50); %Eosinophils 1.1 % (0.0-10.0); %Lymphocytes 33.1 % (21.0-51.0); %Monocytes 8.1 % (0.0-10.0); %Neutrophils 56.8 % (42.0-75.0); Hemoglobin 13.2 g/dL (12.0-16.0); Mean Corpuscular Hemoglobin 30.5 pg (27.0-31.0); Mean Corpuscular Volume 89.7 fL (78.0-98.0); Mean Platelet Volume 8.6 fL (7.4-10.4); Platelet Count 254 thou/uL (130-400); RBC Distribution Width 12.5 % (11.5-14.5); Red Blood Cell (RBC) Count 4.32 mill/uL (4.20-5.40); White Blood Cell (WBC) Count 6.7 thou/uL (4.8-10.8)
[2019-07-31] MEDS: Sodium Chloride 0.9% 1,000 ML IV SCH (16:39)
[2019-07-31 16:43] LABS: Anion Gap 10 mmol/L (10-20); BUN (Urea Nitrogen) 11 mg/dL (7.0-18.7); Calc. Creatinine Clearance 148 mL/min (70-130); Calcium 9.6 mg/dL (7.8-10.44); Carbon Dioxide 28 mmol/L (22-29); Chloride 106 mmol/L (98-107); Estimated GFR-MDRD 76; Glucose 90 mg/dL (70-105); Potassium 3.9 mmol/L (3.5-5.1); Sodium 140 mmol/L (136-145)
[2019-07-31] MEDS: Gabapentin 100 MG CAP PO SCH (21:41)
--- NOTE | 2019-07-31 22:33 | HP ---
HISTORY OF PRESENT ILLNESS: The patient is a 39-year-old female, who underwent a Chiari decompression by Dr. Adan on 06/06/2019 who has developed pseudomeningocele. The patient reports that following the surgery, she had some initial drainage from the incision, but this was short-lived and following that incision was dry. However, over the past 4 days, she has had significant exacerbation of pseudomeningocele, which is now large and tight. We saw her in our office on 07/29/2019 for similar complaint and at that time, the pseudomeningocele was tapped and approximately 120 mL of clear nilay looking CSF was drained. This flattened out the area quite well, but unfortunately it has returned during office evaluation on 07/31/2019. She also complains of tightness to the neck and ongoing headaches. She has no neurologic deficits. She denies any fever and has no clinical signs of infection. PAST MEDICAL HISTORY: Asthma, chronic headaches, hypertension, GERD. PAST SURGICAL HISTORY: Chiari decompression on 06/06/2019, left knee surgery, right knee surgery, left rotator cuff repair, , D and C, tubal ligation, hysterectomy. SOCIAL HISTORY: The patient does not smoke, drink, or use any drugs. CURRENT MEDICATION LIST: 1. Tizanidine 4 mg p.o. q.6h p.r.n. 2. Hydrochlorothiazide 12.5 mg one tablet p.o. daily. 3. Gabapentin 100 mg p.o. t.i.d. 4. Zofran 8 mg p.o. q.6h p.r.n. 5. Omeprazole 20 mg p.o. b.i.d. 6. Naproxen 3 caps p.o. b.i.d. 7. Loratadine 10 mg p.o. b.i.d. 8. Famotidine 20 mg p.o. daily. 9. Amlodipine 5 mg p.o. daily. 10. Albuterol inhaler 2 puffs p.r.n. ALLERGIES: SHE IS ALLERGIC TO ACETAMINOPHEN, DIAMOX, ALPRAZOLAM, ASPIRIN, CODEINE, HYDROCODONE, IODINE, MORPHINE, PENICILLIN, DILANTIN, SULFA, AND TRAMADOL. REVIEW OF SYSTEMS: Per HPI. PHYSICAL EXAMINATION: GENERAL: The patient is awake, alert, in no acute distress. HEENT: Head, normocephalic and atraumatic. Eyes, PERRLA. Extraocular movements intact. ENT: Oral mucosa is pink, intact, and moist. She has normal voice. NECK: She has a large fluctuant area just underlying the posterior incision consistent with pseudomeningocele. She has pain with range of motion of the neck. CARDIAC: Regular rate and rhythm. PULMONARY: Symmetric chest expansion with no evidence of dyspnea. MUSCULOSKELETAL: Free active range of motion all extremities. No focal motor weakness. NEUROLOGIC: A and O x4. Steady gait. No focal neurologic deficits are appreciated. ASSESSMENT AND PLAN: The patient is a 39-year-old female status post Chiari decompression on 06/06/2019, who has developed a large pseudomeningocele and is having significant pain to the back of the neck as well as headaches. We will plan to treat this with a lumbar drain, which I plan to do with the assistance of IR on 08/01/2019. Hopefully this will resolve her pseudomeningocele formation with time. I discussed this plan with Dr. Jimenez who is in agreement. Job ID: [id number] [facility]
[2019-08-01] MEDS: Sodium Chloride 0.9% 1,000 ML IV SCH ×2 (05:20→22:05)
[2019-08-01] MEDS: Ondansetron PF 4 MG/2 ML Vial SLOW IVP PRN ×2 (09:10→17:40)
[2019-08-01] MEDS: Amlodipine 5 MG TAB PO SCH (09:16)
[2019-08-01] MEDS: Hydrochlorothiazide 25 MG TAB PO SCH (09:16)
[2019-08-01] MEDS: Cyclobenzaprine 10 MG TAB PO PRN (09:16)
[2019-08-01] MEDS: Gabapentin 100 MG CAP PO SCH ×3 (09:16→22:05)
--- NOTE | 2019-08-01 09:50 | SPC ---
Fluoroscopically guided lumbar puncture: DATE: 08/01/2019 HISTORY: 39-year-old female with cervical pseudomeningocele requiring placement of lumbar drainage catheter fo r CSF decompression. TECHNIQUE: Signed informed consent obtained. Patient placed prone on special procedures table. Skin of lower priscila k prepared and draped in usual sterile fashion. 25-gauge needle used to apply buffered lidocaine superficially and deeply. 14-gauge spinal needle advanced from right paramedian L2-3 interlaminar sterling hahn under fluoroscopic guidance into the spinal canal. Upon brisk return of clear CSF, neurosurgery PA Ostio Rapp advanced the lumbar catheter through the spinal needle. She removed the spinal needle over the catheter and left the catheter in place within the intrathecal space. Patient tolerated the procedure well. No complications. IMPRESSION: Successful large caliber lumbar puncture for lumbar drainage catheter placement.
[2019-08-01] MEDS: Ketorolac Tromethamine 30 MG/ML VIAL IVP PRN (09:54)
[2019-08-01] MEDS ORDERED: diphenhydrAMINE 50 MG CAP PO PRN (10:46)
[2019-08-01] MEDS: Morphine 2 MG/ML SYRINGE SLOW IVP PRN ×3 (11:11→17:54)
[2019-08-01] MEDS ORDERED: Morphine 2 MG/ML SYRINGE SLOW IVP SCH (12:55)
[2019-08-01] MEDS: CEFAZOLIN 2 GM in Premix Bag 1 BAG IVPB SCH ×2 (15:13→22:05)
[2019-08-01] MEDS ORDERED: Promethazine HCl 25 MG/ML VIAL IM PRN (19:07)
[2019-08-01] MEDS: Promethazine 25 MG TAB PO PRN (19:58)
[2019-08-01] MEDS ORDERED: diphenhydrAMINE 50 MG/ML VIAL IM PRN (21:25)
[2019-08-01] MEDS ORDERED: Naloxone HCl 0.4 mg/ml Vial IV PRN (21:25)
[2019-08-01] MEDS ORDERED: diphenhydrAMINE 25 MG CAP PO PRN (21:25)
[2019-08-01] MEDS ORDERED: Communication Order-Pharmacy FS SCH (21:30)
[2019-08-01] MEDS: fentaNYL Citrate/PF 2,000 MCG in Sodium Chloride 0.9% 60 ML IV PRN (22:11)
[2019-08-02] MEDS: Promethazine 25 MG TAB PO PRN ×3 (02:52→20:32)
[2019-08-02] MEDS: PROVENTIL INHALER 6.7 G (200 INHALATIONS) INH PRN (03:43)
[2019-08-02] MEDS ORDERED: Loratadine 10 MG TAB PO SCH ×3 (03:45→21:00)
[2019-08-02] MEDS: CEFAZOLIN 2 GM in Premix Bag 1 BAG IVPB SCH ×3 (06:51→22:47)
--- NOTE | 2019-08-02 08:37 | PRG ---
DATE OF SERVICE: 08/02/2019 SUBJECTIVE: I examined the patient on the floor. Lumbar drain was placed yesterday. It has been working appropriately and we are draining 20 mL q.2. The patient did have significant pain control issues with headaches and nausea yesterday. Anesthesia was consulted for a MANAGER OF PMO and she reports significant improvement with this. OBJECTIVE: On exam this morning, the patient is awake, alert, in no acute distress. She still has a fluctuant area to the posterior aspect of the cervical spine just under the incision, but this seems slightly less taut than yesterday. She has free active range of motion of all extremities. No focal motor weakness. ASSESSMENT AND PLAN: We will continue current drainage at 20 mL q.2 hours. She should remain on an Ancef. I anticipate the patient will require continued drainage over the next few days. Job ID: [id number] MTDD
[2019-08-02] MEDS: Gabapentin 100 MG CAP PO SCH ×3 (08:43→20:32)
[2019-08-02] MEDS: Loratadine 10 MG TAB PO SCH ×2 (08:43→20:32)
[2019-08-02] MEDS: Amlodipine 5 MG TAB PO SCH (08:44)
[2019-08-02] MEDS: Hydrochlorothiazide 25 MG TAB PO SCH (08:44)
[2019-08-02] MEDS: Ondansetron PF 4 MG/2 ML Vial SLOW IVP PRN ×2 (08:54→16:16)
[2019-08-02] MEDS: Sodium Chloride 0.9% 1,000 ML IV SCH (10:40)
[2019-08-02] MEDS: Ketorolac Tromethamine 30 MG/ML VIAL IVP PRN (20:35)
[2019-08-03] MEDS: Ketorolac Tromethamine 30 MG/ML VIAL IVP PRN ×3 (02:43→20:10)
[2019-08-03] MEDS: Ondansetron PF 4 MG/2 ML Vial SLOW IVP PRN (02:48)
[2019-08-03] MEDS: Sodium Chloride 0.9% 1,000 ML IV SCH ×3 (03:27→22:48)
[2019-08-03] MEDS: Promethazine 25 MG TAB PO PRN ×2 (06:15→14:16)
[2019-08-03] MEDS: CEFAZOLIN 2 GM in Premix Bag 1 BAG IVPB SCH ×3 (06:16→21:43)
[2019-08-03] MEDS: Gabapentin 100 MG CAP PO SCH ×3 (08:22→20:09)
[2019-08-03] MEDS: Loratadine 10 MG TAB PO SCH ×2 (08:22→20:09)
[2019-08-03] MEDS: Hydrochlorothiazide 25 MG TAB PO SCH (08:22)
[2019-08-03] MEDS: Amlodipine 5 MG TAB PO SCH (08:23)
--- NOTE | 2019-08-03 09:12 | PRG ---
DATE OF SERVICE: 08/03/2019 SUBJECTIVE: I examined the patient on the floor. Yesterday afternoon, the patient was up walking and unfortunately lumbar drain connection to the Jolley was accidentally disconnected. I was able to replace this and secured the drain back to the Jolley after cleaning it thoroughly. It was secured in place with a silk suture. The patient continues to have pain control issues and significant nausea. She is much better when she lays flat on the right side. She does report STARTER CUP POWDER MIXER has been significantly helpful. OBJECTIVE: On exam this morning, the patient is awake, alert, in no acute distress. The fluctuant areas to the posterior aspect of the cervical spine consistent with pseudomeningocele remains although maybe slightly less tight. She has free active range of motion of all extremities. No focal motor weakness. ASSESSMENT AND PLAN: Lumbar drain appears to continue to be working appropriately. We will continue current drain each at 20 mL q.2 hours. We will add a scopolamine patch for her ongoing nausea and we will continue STARTER CUP POWDER MIXER per Anesthesia recommendations. Job ID: [id number] [facility] [place]
[2019-08-03] MEDS: Scopolamine 1.5 mg/72 hour Patch TD SCH (09:15)
--- NOTE | 2019-08-03 10:07 | PRG ---
DATE OF SERVICE: 08/03/2019 SUBJECTIVE: Ms. Bird is generally stable. She continued to have head pain and has had increasing nausea and vomiting. We have initiated a FLATWORK CATCHER because she is intolerant to any oral pain medications. The pseudomeningocele is perhaps slightly less tight, but still quite full. The drain is functional. IMPRESSION AND PLAN: We will continue with lumbar drainage for up to 7 days. Job ID: [id number]
[2019-08-03] MEDS: Ondansetron PF 4 MG/2 ML Vial IVP PRN ×2 (10:59→20:12)
[2019-08-03] MEDS: PROVENTIL INHALER 6.7 G (200 INHALATIONS) INH PRN ×2 (11:10→20:24)
[2019-08-03] MEDS: fentaNYL Citrate/PF 2,000 MCG in Sodium Chloride 0.9% 60 ML IV PRN (12:48)
[2019-08-03] MEDS: diphenhydrAMINE 50 MG/ML VIAL IVP PRN ×2 (15:33→21:42)
[2019-08-04] MEDS: Ketorolac Tromethamine 30 MG/ML VIAL IVP PRN ×3 (06:12→18:18)
[2019-08-04] MEDS: CEFAZOLIN 2 GM in Premix Bag 1 BAG IVPB SCH ×3 (06:13→22:06)
[2019-08-04] MEDS: diphenhydrAMINE 50 MG/ML VIAL IVP PRN ×4 (06:33→20:08)
--- NOTE | 2019-08-04 07:02 | PRG ---
DATE OF SERVICE: 08/04/2019 I saw Yolanda Bird in her hospital room this morning. She was admitted last week for pseudomeningocele. A lumbar drain has been placed. There is less tension on the posterior neck, but the headache is unchanged. The nausea is worse with the drain than it was before. We will taper off the drain in the coming days. If CSF re-accumulates, we can either wait until the body seals off the pseudomeningocele, which it will eventually, or we can place a DEVICE PROCESSING ENGINEER shunt, or a lumboperitoneal shunt. For now, Ms. Bird is hopeful that this will take care of her current problem. Job ID: [id number]
[2019-08-04] MEDS: Hydrochlorothiazide 25 MG TAB PO SCH (08:25)
[2019-08-04] MEDS: Amlodipine 5 MG TAB PO SCH (08:25)
[2019-08-04] MEDS: Loratadine 10 MG TAB PO SCH ×2 (08:26→20:08)
[2019-08-04] MEDS: Ondansetron PF 4 MG/2 ML Vial IVP PRN ×3 (08:26→20:09)
[2019-08-04] MEDS: Gabapentin 100 MG CAP PO SCH ×3 (08:26→20:07)
[2019-08-04] MEDS: Promethazine 25 MG TAB PO PRN ×2 (10:27→17:20)
[2019-08-04] MEDS ORDERED: Chloraseptic Spray 180 ml Bottle PO PRN (12:38)
[2019-08-04] MEDS: fentaNYL Citrate/PF 2,000 MCG in Sodium Chloride 0.9% 60 ML IV PRN (15:01)
[2019-08-04] MEDS ORDERED: Heparin 1,000 UNITS/ML VIAL ONE (15:08)
[2019-08-04] MEDS: Sodium Chloride 0.9% 1,000 ML IV SCH (16:08)
[2019-08-04] MEDS: Artificial Tears 18 DROP/0.9 ML EA EYE PRN (20:38)
[2019-08-05] MEDS: diphenhydrAMINE 50 MG/ML VIAL IVP PRN ×4 (00:01→20:05)
[2019-08-05] MEDS: Ondansetron PF 4 MG/2 ML Vial IVP PRN ×4 (04:02→22:17)
[2019-08-05] MEDS: CEFAZOLIN 2 GM in Premix Bag 1 BAG IVPB SCH ×3 (06:02→22:18)
[2019-08-05] MEDS: Promethazine 25 MG TAB PO PRN ×4 (06:23→20:05)
--- NOTE | 2019-08-05 07:09 | PRG ---
DATE OF SERVICE: 08/05/2019 Ms. Bird still has some nausea and vertigo when she moves quickly. Her headache is still present. She has not had a fever since she has been in the hospital. Her blood pressures have been in normal range. Her neurological examination is unchanged. There was no CSF leakage from her neck. There is still some fullness in the neck and a change in the CSF drainage rate did not make much of a difference in her symptoms. We are going to try to continue our CSF diversion for now. We are slowly weaning her off that CSF drainage to see if she can tolerate going without it. If she cannot, then we have two surgical options, one is revision of the wound with exploration to find a leak of the CSF and close it and the other option is shunting or some combination thereof. She is not especially excited about another operation, but willing to undergo one if it should help her. Eventually, the pseudomeningocele will go away. Job ID: [id number]
[2019-08-05] MEDS: Gabapentin 100 MG CAP PO SCH ×3 (08:13→20:05)
[2019-08-05] MEDS: Hydrochlorothiazide 25 MG TAB PO SCH (08:13)
[2019-08-05] MEDS: Amlodipine 5 MG TAB PO SCH (08:13)
[2019-08-05] MEDS: Loratadine 10 MG TAB PO SCH ×2 (08:13→20:05)
[2019-08-05] MEDS: Ketorolac Tromethamine 30 MG/ML VIAL IVP PRN ×3 (08:17→20:23)
[2019-08-05] MEDS: Sodium Chloride 0.9% 1,000 ML IV SCH ×2 (08:22→18:17)
[2019-08-05] MEDS: PROVENTIL INHALER 6.7 G (200 INHALATIONS) INH PRN (11:28)
[2019-08-05 14:09] VITALS: BMI 34.0
[2019-08-05] MEDS: fentaNYL Citrate/PF 2,000 MCG in Sodium Chloride 0.9% 60 ML IV PRN (14:25)
[2019-08-05] MEDS: D5W-AA 4.25% with LYTES 1,000 ML BAG IV SCH (17:00)
[2019-08-05] MEDS: Artificial Tears 18 DROP/0.9 ML EA EYE PRN ×2 (17:01→20:09)
[2019-08-06] MEDS: D5W-AA 4.25% with LYTES 1,000 ML BAG IV SCH ×2 (04:24→16:08)
[2019-08-06] MEDS: Ondansetron PF 4 MG/2 ML Vial IVP PRN ×3 (04:37→16:14)
[2019-08-06] MEDS: Ketorolac Tromethamine 30 MG/ML VIAL IVP PRN (04:37)
[2019-08-06] MEDS: CEFAZOLIN 2 GM in Premix Bag 1 BAG IVPB SCH ×3 (06:12→22:31)
[2019-08-06] MEDS: Promethazine 25 MG TAB PO PRN ×2 (06:54→18:45)
[2019-08-06] MEDS: diphenhydrAMINE 50 MG/ML VIAL IVP PRN ×2 (06:54→18:45)
--- NOTE | 2019-08-06 07:01 | PRG ---
DATE OF SERVICE: 08/06/2019 Ms. Bird still has some nausea, vertigo, and headaches. She still has no fevers while in the hospital. White blood cells have been normal. Blood pressure has been optimal. Her neurological exam is unchanged. There was no CSF leak from her neck, but continues to complain of stiffness more than yesterday with a decrease in CSF drainage. Due to the increased symptoms, we will obtain a fluid culture and sent it to microbiology. We are going to continue the CSF diversion for now. She is stating that she would like one of the two surgical options. One is the revision of the wound exploration to find a CSF leak and close it. The second option is shunting. She understands that the pseudomeningocele will eventually go away, but she just cannot tolerate the headaches and the neck stiffness. Job ID: [id number]
[2019-08-06] MEDS: fentaNYL Citrate/PF 2,000 MCG in Sodium Chloride 0.9% 60 ML IV PRN (08:19)
[2019-08-06] MEDS: Scopolamine 1.5 mg/72 hour Patch TD SCH (08:21)
[2019-08-06] MEDS: Gabapentin 100 MG CAP PO SCH ×3 (08:22→20:20)
[2019-08-06] MEDS: Hydrochlorothiazide 25 MG TAB PO SCH (08:22)
[2019-08-06] MEDS: Loratadine 10 MG TAB PO SCH ×2 (08:22→20:20)
[2019-08-06] MEDS: Amlodipine 5 MG TAB PO SCH (08:22)
[2019-08-06] MEDS: Sodium Chloride 0.9% 1,000 ML IV SCH ×2 (08:38→20:33)
--- NOTE | 2019-08-06 08:53 | PRG ---
DATE OF SERVICE: 08/06/2019 I saw Yolanda Bird in her hospital room this morning. She continues her lumbar drainage albeit at a lower rate than previously. She is getting quite frustrated with her postural headaches and some nausea as she turns her head. She has an interesting pseudomeningocele that developed in a delayed fashion after her Chiari decompression. It has not come through the skin and we were trying to control with lumbar drainage. She is frustrated with this modality of treatment and honestly there is still a significant amount of fluid collected in the suboccipital region. Surgical intervention for this could include shunting and/or dural patch revision. She is interested in both of these and would like a definitive procedure in spite of increased risk done as soon as possible. Plan is to take two separate CSF cultures, make sure they were negative at 48 hours at least and then perform the surgery as soon as possible to get her out of the hospital and recovering away from the hospital facility. If our 2nd cultures drawn tomorrow, 48 hours will be sometime Sunday that we get the result and Sunday would be the earliest possible point which we can do an operation. Operation will be a CT-guided BrainLAB placement of ventriculoperitoneal shunt with a programmable valve followed by wound revision. It will be 2 surgeries under one anesthesia and given the best chance of this being a definitive procedure. INFORMED CONSENT: I discussed indications, risks, benefits, and alternatives to the above-mentioned surgical intervention. The risks we discussed included, but were not limited to, bleeding, infection, brain damage, seizure, stroke, paralysis, dependence for care, cardiopulmonary complications of anesthesia, abdominal organ injury, abdominal infection, and . She understands all these risks and wants to proceed. We will make arrangements for this to happen. Job ID: [id number] MTDD
--- NOTE | 2019-08-06 09:06 | CT ---
Exam: Head CT without contrast HISTORY: Persistent fluid collection secondary to suboccipital craniotomy. Brain lab protocol. COMPARISON: 06/24/2019 FINDINGS: Hemorrhage: No intraparenchymal hemorrhage or extra-axial hematoma. Brain parenchyma: Cortical brown-white matter differentiation is preserved. No mass effect or midline shift. Basilar cisterns are patent. Ventricular system: Ventricles and sulci are patent and symmetric. Calvarium: Stable suboccipital craniectomy. Sinuses and mastoid air cells: Adequate aeration. Soft tissues: There is an enlarging hypodensity in the posterior occipital and suboccipital soft tiss ues, incompletely evaluated. Small punctate foci of air are noted. Possibility of infected fluid collection cannot be excluded. Incompletely evaluated collection measures 7.6 x 5.7 cm. There is incr eased mass effect upon the posterior aspect of the cerebellum. Small focus of air may be due to the dura and may represent a component of subdural infected fluid collection. IMPRESSION: 1. Enlarging fluid collection, suboccipital in location. Presence of air does raise the possibility o f infected fluid collection. 2. There may be a small component of subdural infected fluid in the midline of the posterior fossa (a xial image 36, series 2). Line 3. Findings were conveyed to Dr. Brenna faith 08/06/2019 9:03 AM Code CR
[2019-08-06] MEDS: Artificial Tears 18 DROP/0.9 ML EA EYE PRN (20:20)
[2019-08-07] MEDS: D5W-AA 4.25% with LYTES 1,000 ML BAG IV SCH ×2 (04:23→16:03)
[2019-08-07] MEDS: Promethazine 25 MG TAB PO PRN (04:29)
[2019-08-07] MEDS: CEFAZOLIN 2 GM in Premix Bag 1 BAG IVPB SCH ×3 (06:51→22:04)
[2019-08-07] MEDS: PROVENTIL INHALER 6.7 G (200 INHALATIONS) INH PRN (07:44)
--- NOTE | 2019-08-07 08:02 | PRG ---
DATE OF SERVICE: 08/07/2019 I saw Yolanda Bird in her hospital room this morning. She complains of low-pressure headache symptoms from continuous CSF drainage. She has not had any fevers. Otherwise, she is well. She is very anxious to have her pseudomeningocele repaired and not have it come back. I explained to her that the most aggressive option would be a revision of her wound, search for a CSF leak and a patch repair along with CSF shunting. She wants the entire procedure done. I discussed the risks of that aggressive option with her yesterday and she wants to proceed. We will need to make sure if CSF culture is negative twice before placing the shunt. The final results of today's culture at 48 hours will be available on Sunday. We will place her on the schedule for surgery on Sunday. Job ID: [id number]
[2019-08-07] MEDS: Hydrochlorothiazide 25 MG TAB PO SCH (08:44)
[2019-08-07] MEDS: Gabapentin 100 MG CAP PO SCH ×3 (08:45→20:10)
[2019-08-07] MEDS: Amlodipine 5 MG TAB PO SCH (08:45)
[2019-08-07] MEDS: Loratadine 10 MG TAB PO SCH ×2 (08:45→20:10)
[2019-08-07] MEDS: diphenhydrAMINE 50 MG/ML VIAL IVP PRN ×2 (11:48→20:22)
[2019-08-07] MEDS: Ondansetron PF 4 MG/2 ML Vial IVP PRN ×2 (11:49→20:12)
[2019-08-07] MEDS: fentaNYL Citrate/PF 2,000 MCG in Sodium Chloride 0.9% 60 ML IV PRN (13:32)
[2019-08-07] MEDS: Promethazine HCl 25 MG/ML VIAL IM PRN (14:53)
[2019-08-07] MEDS: BIOTENE MOUTH SPRAY 44.3 ML PO SCH ×2 (14:54→20:14)
[2019-08-07] MEDS: Sodium Chloride 0.9% 1,000 ML IV SCH ×2 (14:55→20:18)
[2019-08-07] MEDS ORDERED: Docusate 100 MG CAP PO SCH (17:00)
[2019-08-07] MEDS: Cyclobenzaprine 10 MG TAB PO PRN (20:10)
[2019-08-08] MEDS: BIOTENE MOUTH SPRAY 44.3 ML PO SCH ×5 (01:14→23:05)
[2019-08-08] MEDS: D5W-AA 4.25% with LYTES 1,000 ML BAG IV SCH ×2 (04:07→14:38)
[2019-08-08] MEDS: Ondansetron PF 4 MG/2 ML Vial IVP PRN ×3 (04:11→20:22)
[2019-08-08] MEDS: Promethazine HCl 25 MG/ML VIAL IM PRN ×2 (04:41→14:38)
[2019-08-08] MEDS: CEFAZOLIN 2 GM in Premix Bag 1 BAG IVPB SCH ×3 (06:03→21:24)
--- NOTE | 2019-08-08 07:05 | PRG ---
DATE OF SERVICE: 08/08/2019 I saw Ms. Bird in her hospital room this morning. CSF was drawn yesterday for culture. She continues to have nausea when she moves her head too much. Otherwise, when she is lying perfectly still, she has no respiratory or GI symptoms. Her vital signs have been stable. Her neurological examination is as well. There is a fluid collection in the posterior occiput. There is CSF draining from the lumbar drain and is clear. Both cultures have been negative to date, that will be finalized at 48 hours at least by tomorrow afternoon and then on Sunday, we will plan to place a shunt to decrease the CSF pressure and to revise her cervical wound to find any CSF leakage and reinforced with sutures. Job ID: [id number]
[2019-08-08] MEDS: Gabapentin 100 MG CAP PO SCH ×3 (08:43→20:18)
[2019-08-08] MEDS: Docusate 100 MG CAP PO SCH (08:43)
[2019-08-08] MEDS: Loratadine 10 MG TAB PO SCH ×2 (08:44→20:18)
[2019-08-08] MEDS: Amlodipine 5 MG TAB PO SCH (08:44)
[2019-08-08] MEDS: Scopolamine 1.5 mg/72 hour Patch TD SCH (08:45)
[2019-08-08] MEDS: Hydrochlorothiazide 25 MG TAB PO SCH (08:45)
[2019-08-08] MEDS: fentaNYL Citrate/PF 2,000 MCG in Sodium Chloride 0.9% 60 ML IV PRN (09:56)
[2019-08-08] MEDS: Naproxen 500 MG TAB PO SCH (13:51)
[2019-08-08] MEDS: Sodium Chloride 0.9% 1,000 ML IV SCH ×2 (13:51→23:15)
[2019-08-08] MEDS: diphenhydrAMINE 50 MG/ML VIAL IVP PRN (15:53)
[2019-08-08] MEDS: Zolpidem Tartrate 5 MG TAB PO PRN (20:18)
[2019-08-08] MEDS: Cyclobenzaprine 10 MG TAB PO PRN (20:18)
[2019-08-08] MEDS: Artificial Tears 18 DROP/0.9 ML EA EYE PRN (20:19)
[2019-08-08] MEDS: PROVENTIL INHALER 6.7 G (200 INHALATIONS) INH PRN (20:50)
[2019-08-09] MEDS: Naproxen 500 MG TAB PO SCH ×2 (01:05→13:49)
[2019-08-09] MEDS: Promethazine 25 MG TAB PO PRN ×2 (02:30→09:18)
[2019-08-09] MEDS: D5W-AA 4.25% with LYTES 1,000 ML BAG IV SCH ×2 (03:30→17:05)
[2019-08-09] MEDS: CEFAZOLIN 2 GM in Premix Bag 1 BAG IVPB SCH ×3 (05:07→21:22)
--- NOTE | 2019-08-09 07:49 | PRG ---
DATE OF SERVICE: 08/09/2019 I saw Yolanda Bird in her hospital room this morning. Her mother is at the bedside. Ms. Bird is standing and walking around the room. She does not appear to have a significant headache while she is standing. Her vitals have been stable. Her neurological examination is stable as well. Her lumbar drain fell out yesterday after her mother applied some gauze to it. The CSF cultures that we did obtain were negative to date. One is only 24 hours old and when that is finalized, we can safely schedule surgery. Ms. Bird is planned to go to the operating room tomorrow for shunt placement and repair of her suboccipital wound. This gives us the best chance to get her out of the hospital as soon as possible, perhaps Sunday. Job ID: [id number]
[2019-08-09] MEDS: Hydrochlorothiazide 25 MG TAB PO SCH (08:59)
[2019-08-09] MEDS: Amlodipine 5 MG TAB PO SCH (08:59)
[2019-08-09] MEDS: Cyclobenzaprine 10 MG TAB PO PRN ×2 (09:18→21:24)
[2019-08-09] MEDS: Gabapentin 100 MG CAP PO SCH ×3 (09:18→21:24)
[2019-08-09] MEDS: Loratadine 10 MG TAB PO SCH ×2 (09:18→21:26)
[2019-08-09] MEDS: BIOTENE MOUTH SPRAY 44.3 ML PO SCH ×3 (09:19→18:45)
[2019-08-09] MEDS: Docusate 100 MG CAP PO SCH (09:19)
[2019-08-09] MEDS: fentaNYL Citrate/PF 2,000 MCG in Sodium Chloride 0.9% 60 ML IV PRN (15:09)
--- NOTE | 2019-08-09 15:11 | SPC ---
LEFT UPPER EXTREMITY PICC LINE PLACEMENT WITH ULTRASOUND GUIDANCE: HISTORY: TPN. Infection. EXPOSURE: 0.2 minutes. 1563 mGy*^cm2. FINDINGS: Successful left upper cavity PICC line placement with ultrasound guidance. Distal tip is in the right atrium. 44 cm trim length. TECHNIQUE: Consent obtained to perform a left upper extremity PICC line with ultrasound guidance. The left arm w as prepped and draped in a sterile fashion. 1% lidocaine, buffered with sodium bicarbonate was used for anesthesia. Under ultrasound guidance, a 22-gauge spinal needle was used to cannulate the brachia l vein. A 0.018 guidewire was advanced through the needle to the level of the superior vena cava. Under fluoroscopy, the wire was advanced into the inferior vena cava to document venous access. Wire was subsequently pulled back to the right atrium. Tract dilatation was performed. Dual lumen 5 Turkish catheter was advanced over the wire. Distal tip is in the right atrium. 44 cm trim length. IMPRESSION: Successful left upper extremity PICC line placement with ultrasound guidance. Transcribed Date/Time: 08/09/2019 3:19 PM
[2019-08-09] MEDS: Sodium Chloride 0.9% 1,000 ML IV SCH (15:43)
[2019-08-09] MEDS: Promethazine HCl 25 MG/ML VIAL IM PRN ×2 (17:03→21:41)
--- NOTE | 2019-08-09 17:03 | ULT ---
EXAM: Right upper extremity venous ultrasound HISTORY: Right upper extremity pain and edema COMPARISON: None TECHNIQUE: Multiplanar grayscale and color Doppler images were obtained in a right upper extremity ve nous ultrasound. Spectral analysis of the Doppler waveforms were performed. FINDINGS: The internal jugular vein demonstrates normal compression and flow without evidence of thrombus. The subclavian vein demonstrates normal flow and augmentation without evidence of thrombus. The axillary and brachial veins demonstrate normal compression, flow, and augmentation without eviden ce of thrombus. The venous structures distal to the elbow are patent without thrombus. The cephalic and basilic veins are patent. IMPRESSION: No evidence of DVT.
[2019-08-09] MEDS: Ondansetron PF 4 MG/2 ML Vial IVP PRN (17:28)
[2019-08-09] MEDS: PROVENTIL INHALER 6.7 G (200 INHALATIONS) INH PRN (19:10)
[2019-08-09] MEDS: Zolpidem Tartrate 5 MG TAB PO PRN (21:24)
[2019-08-09] MEDS: diphenhydrAMINE 50 MG/ML VIAL IVP PRN (21:40)
[2019-08-10] MEDS: Ondansetron PF 4 MG/2 ML Vial IVP PRN ×2 (00:04→21:36)
[2019-08-10] MEDS: Naproxen 500 MG TAB PO SCH ×2 (00:04→16:21)
[2019-08-10] MEDS: BIOTENE MOUTH SPRAY 44.3 ML PO SCH ×5 (00:05→23:21)
[2019-08-10] MEDS: diphenhydrAMINE 50 MG/ML VIAL IVP PRN (02:50)
[2019-08-10] MEDS: CEFAZOLIN 2 GM in Premix Bag 1 BAG IVPB SCH ×3 (05:06→21:24)
[2019-08-10] MEDS: Sodium Chloride 0.9% 1,000 ML IV SCH ×2 (05:07→19:46)
[2019-08-10] MEDS: D5W-AA 4.25% with LYTES 1,000 ML BAG IV SCH ×2 (05:08→17:09)
[2019-08-10] MEDS ORDERED: Lidocaine 0.5%/Epinephrine 1:200,000 50 ml Vial ONE (07:15)
[2019-08-10] MEDS ORDERED: Thrombin 5000 UNITS/5 ML VIAL ONE (07:16)
[2019-08-10] MEDS ORDERED: Bacitracin Zinc Ointment 30 gm TUBE ONE (07:16)
[2019-08-10] MEDS ORDERED: Fentanyl 100 MCG/2 ML VIAL ONE ×6 (07:49→15:56)
[2019-08-10] MEDS ORDERED: Scopolamine 1.5 mg/72 hour Patch ONE (07:55)
[2019-08-10] MEDS ORDERED: Vancomycin HCl 20 MG, Gentamicin (PEDI) 8 MG, Admixture Fee 1 EACH in Sodium Chloride 0... FS SCH (08:15)
[2019-08-10] MEDS: Amlodipine 5 MG TAB PO SCH (10:17)
[2019-08-10] MEDS: Hydrochlorothiazide 25 MG TAB PO SCH (10:17)
[2019-08-10] MEDS: Gabapentin 100 MG CAP PO SCH ×3 (10:17→21:24)
[2019-08-10] MEDS: Docusate 100 MG CAP PO SCH (10:17)
[2019-08-10] MEDS: Loratadine 10 MG TAB PO SCH ×2 (10:17→21:24)
[2019-08-10] MEDS ORDERED: Glycopyrrolate 0.2 MG/ML 5 ML SYRINGE ONE (10:44)
[2019-08-10] MEDS ORDERED: Lidocaine 1% PF 5 ML VIAL ONE (10:44)
[2019-08-10] MEDS ORDERED: Ondansetron PF 4 MG/2 ML Vial ONE (10:44)
[2019-08-10] MEDS ORDERED: Vecuronium 10 MG VIAL ONE (10:44)
[2019-08-10] MEDS ORDERED: PHENYLEPHRINE-NS 100 MCG/ML 10 ML SYRINGE ONE (10:44)
[2019-08-10] MEDS ORDERED: PROPOFOL 200 MG/20 ML VIAL ONE (10:44)
[2019-08-10] MEDS ORDERED: Metoprolol Tartrate 5 MG/5 ML VIAL ONE (10:44)
[2019-08-10] MEDS ORDERED: Rocuronium Bromide 10 MG/ML (10ML VIAL) ONE (10:44)
[2019-08-10] MEDS ORDERED: EPHEDRINE 25 MG/5 ML SYRINGE ONE (10:44)
[2019-08-10] MEDS ORDERED: Phenylephrine 10 MG/ML VIAL ONE (11:44)
[2019-08-10] MEDS ORDERED: HYDROmorphone 2 MG/ML VIAL SLOW IVP PRN (14:58)
[2019-08-10] MEDS ORDERED: Promethazine HCl 25 MG/ML VIAL IM PRN (14:58)
[2019-08-10] MEDS ORDERED: Promethazine HCl 25 MG/ML VIAL SLOW IVP PRN (14:58)
[2019-08-10] MEDS ORDERED: Ondansetron HCl/PF 4 MG/2 ML Vial IVP PRN (14:58)
--- NOTE | 2019-08-10 19:34 | OP ---
DATE OF PROCEDURE: 08/10/2019 CHIEF EXECUTIVE OR MANAGING DIRECTOR: Dontrell Hernandez PA-C PREOPERATIVE INDICATIONS: Prevent neurological deterioration, treat pain. PREOPERATIVE DIAGNOSES: Delayed accumulation of pseudomeningocele after Chiari decompression, attempted spinal drainage failed, painful pseudomeningocele, likely pseudotumor cerebri. POSTOPERATIVE DIAGNOSES: Delayed accumulation of pseudomeningocele after Chiari decompression, attempted spinal drainage failed, painful pseudomeningocele, likely pseudotumor cerebri. PROCEDURES PERFORMED: 1. BrainLAB stereotactic assisted placement of right frontal ventriculoperitoneal shunt (operation #1). 2. Revision of suboccipital wound, partial laminectomy of C2, dural closure with microsurgical techniques, operative microscope (operation #2). DESCRIPTION OF PROCEDURE: The patient was brought to the operating room. A spinal drain had been removed 2 days earlier. Cultures were negative. Because of persistent painful pseudomeningocele, we elected to revise her wound, fix her dura, and ensure the fix was watertight with a ventriculoperitoneal shunt. General endotracheal anesthesia was induced. The patient was carefully positioned on the operating table with her head immobilized in Guzman pin and head gauge unit operator and turned slightly to the left. We kept the ear in line with the abdomen. Hair was removed from the right side of the scalp. Using the preoperative BrainLAB protocol CT scan and the BrainCardback system, we registered stereotactic navigational space around the head using surface registration technique. We verified landmarks and found it to be quite accurate. We planned a curvilinear incision at the coronal suture in the midpupillary line on the right, another incision behind the ear, and one on the abdomen. We prepped and draped the scalp, neck, chest, and abdomen in the usual fashion for shunt. I started with our cranial incision, opened with a 10 blade knife. We controlled the bleeding with bipolar cautery. We placed a self-retaining retractor and used a high-speed drill, made a travis hole. We waxed the edges of the travis hole and we did not open the dura until we had completed the rest of the case. We made incision behind the ear and one on the abdomen. We tunneled the shunt passer from the incision behind the ear to the abdomen and then placed peritoneal catheter through our shunt passer. We then tunneled from our cranial incision to the incision behind the ear and pulled the proximal portion to that incision. A self-retaining retractor was placed in the abdominal incision. We dissected down to the abdominal wall. We incised the fascia in the midline and then entered the preperitoneal space. She had a significant amount of preperitoneal fat, but eventually visualized a clear peritoneum with omentum. We opened the peritoneum and placed a pursestring suture around her opening. We irrigated with bacitracin irrigation. We were back to the cranial incision and we attached a Strata programmable valve to the proximal portion of the peritoneal catheter. We then opened the dura in a cruciate fashion and coagulated back the leaflets of the dura. We incised the missy. Using the Bluetector Stylet in our ventricular catheter, we advanced the catheter into the ventricular system. Her ventricles were quite small. We did appreciate the drainage of CSF at about 4.5 to 5 cm from the brain surface. We left the drain hanging below the level of the ear and more CSF egress was noted, confirming adequate positioning. We then infused 2 mL of sterile saline through our ventricular catheter. This sterile saline containing 10 mg of vancomycin and 4 mg of gentamicin. We then immediately connected our ventricular catheter to the proximal portion of the programmable valve. The valve was programmed to a high pressure setting temporarily before the next portion of the procedure. We irrigated all our incisions. We tunneled our distal end of our peritoneal catheter into the peritoneal opening in tighter pursestring suture around it. We irrigated all incisions. We closed all incisions in anatomical layers and we applied sterile dressings. This was the end of our first operative procedure. We repositioned [place] pin in the patient's head and rolled her onto a separate operating table with chest rolls supporting chest and hips. We flexed the chin a bit and immobilized the head with Guzman oneill on the operating table. Hair was removed from the back of the scalp with electric clippers. We marked out our previous incision. The back of the neck was sterilely prepped and draped. We opened our previous incision in the midline and entered a large CSF collection in the suboccipital region. We removed all the CSF and irrigated copiously with bacitracin irrigation. We then brought the operative microscope into the field. Under microscopic magnification using microsurgical techniques, we inspected our suture line. We administered Valsalva maneuvers multiple times. There was some leakage in the left inferior portion of the closure at the level of the foramen magnum opening and then down through C1 toward C2. We had to remove a portion of the superior lamina of C2 to visualize all our suture line. A 6-0 Prolene was brought into the field. Using microsurgical techniques, we placed interrupted sutures along our suture line from the area where the foramen magnum used to exist all the way down to C2. 10 or 11 interrupted sutures were needed. Valsalva was administered at the end of our closure, and there was no significant CSF egress at all. We inspected the right and lateral limbs of our suture line. We inspected the superior portion. We inspected where the dura had been noted to be tenuous during the previous operation, but there was no further leak whatsoever. We irrigated again with bacitracin irrigation. We reinforced our closure with DuraSeal tissue sealant. We treated the wound with vancomycin powder. We closed the wound in anatomical layers. We applied a sterile dressing. This was a clean case, no contamination. Job ID: [id number]
[2019-08-10] MEDS ORDERED: SYSTANE GEL EYE DROP 10 ML (10 GM) BOT EA EYE PRN ×2 (19:57→20:08)
[2019-08-10] MEDS: Cyclobenzaprine 10 MG TAB PO PRN (21:24)
[2019-08-10] MEDS: Zolpidem Tartrate 5 MG TAB PO PRN (21:40)
[2019-08-10] MEDS: PROVENTIL INHALER 6.7 G (200 INHALATIONS) INH PRN (22:14)
[2019-08-11] MEDS: Naproxen 500 MG TAB PO SCH (00:28)
[2019-08-11] MEDS: Promethazine HCl 25 MG/ML VIAL IM PRN ×2 (00:40→05:05)
[2019-08-11 03:48] VITALS: TEMP 98.2
[2019-08-11] MEDS: Ondansetron PF 4 MG/2 ML Vial IVP PRN (04:00)
[2019-08-11] MEDS: Cyclobenzaprine 10 MG TAB PO PRN (04:00)
[2019-08-11] MEDS: D5W-AA 4.25% with LYTES 1,000 ML BAG IV SCH (04:27)
[2019-08-11] MEDS: BIOTENE MOUTH SPRAY 44.3 ML PO SCH (05:01)
[2019-08-11] MEDS: Sodium Chloride 0.9% 1,000 ML IV SCH (05:05)
[2019-08-11] MEDS: CEFAZOLIN 2 GM in Premix Bag 1 BAG IVPB SCH (05:05)
[2019-08-11] MEDS: fentaNYL Citrate/PF 2,000 MCG in Sodium Chloride 0.9% 60 ML IV PRN (05:51)
--- NOTE | 2019-08-11 07:44 | PRG ---
DATE OF SERVICE: 08/11/2019 Ms. Bird is one day out from placement of CNC MACHINE SETTER shunt for presumed pseudotumor cerebri and persistent pseudomeningocele. She also had wound revision with repair of dural patch graft. She is understandably in some discomfort from surgery, but the pain is different from what she presented with. She is happy that her neck is flat again. Her examination does not reveal any new neurological deficits. She has pain complaints. My plan is to mobilize Ms. Bird by removing her Osorio and making her get out of bed. We are going to stop her SPRAY PAINTER HELPER and transition to oral medications. She had a drain in her spine for a week and two surgeries on her neck and a new shunt, so we will send her home with a week of antibiotic (will find one that does not cause her allergies). I stressed to Ms. Bird that it is better for her to recover from this, albeit with some pain, at home, then remain in the hospital and she understands. Job ID: [id number]
[2019-08-11 07:47] VITALS: BP 102/61
[2019-08-11] MEDS ORDERED: traMADol HCl 50 MG TAB PO PRN (08:09)
[2019-08-11] MEDS: Gabapentin 100 MG CAP PO SCH (09:20)
[2019-08-11] MEDS: Loratadine 10 MG TAB PO SCH (09:21)
[2019-08-11] MEDS: Docusate 100 MG CAP PO SCH (09:21)
[2019-08-11] MEDS: Hydrochlorothiazide 25 MG TAB PO SCH (09:22)
[2019-08-11] MEDS: Amlodipine 5 MG TAB PO SCH (09:22)
[2019-08-11] MEDS: Scopolamine 1.5 mg/72 hour Patch TD SCH (09:22)
[2019-08-11] MEDS: Promethazine 25 MG TAB PO PRN (09:24)
--- NOTE | 2019-08-12 07:45 | PQF ---
MARYANNE RASMUSSEN L GERARD MD [id number] SURG A- 3330 [id number] CLINICAL DOCUMENTATION CLARIFICATION FORM: POST DISCHARGE Pseudomeningocele is a known complication of Chiari decompression, most of which remain asymptomatic. When large, painful, and unresponsive to lumbar drain placement, they are more likely secondary to some CSF circulation problem like pseudotumor or hydroecephalus. MTDD
--- NOTE | 2019-08-12 14:15 | DIS ---
DATE OF ADMISSION: 07/31/2019 DATE OF DISCHARGE: 08/11/2019 REASON FOR ADMISSION: Pseudomeningocele. ADMISSION HISTORY: Yolanda Bird is a patient of our neurosurgery clinic with complication of type 1 Chiari decompression, unresponsive to a lumbar drain placement on 08/01/2019. She presented for surgical delayed accumulation of the pseudomeningocele after Chiari decompression, attempted spinal drainage failure due to painful pseudomeningocele, likely a pseudotumor cerebri. PROCEDURES PERFORMED: BrainLAB stereotactic assisted placement of a right frontal ventriculoperitoneal shunt. HOSPITAL COURSE: Ms. Bird on 07/31 came into the ED, and a lumbar drain was placed with the assistance of Interventional Radiology. It was working fine until it started to leak and accidentally was pulled out three days prior to her surgery. Before the time the lumbar drain was pulled out, we got fluid cultures. Those fluid cultures came back negative, and we proceeded with surgery on 08/09, in which she underwent a right frontal ventriculoperitoneal shunt and revision of suboccipital wound, partial laminectomy of C2. At the time of discharge, she was safe for activities of daily living. She was able to ambulate and mobilize with her analgesic medications on board. CONDITION ON DISCHARGE: The patient had no emergencies. Condition was stable for discharge. MEDICATIONS: Home-going medications reviewed. FOLLOWUP: Followup arrangements made by our scheduling coordinators in clinic and call to the patient. ACTIVITY RESTRICTIONS: These were reviewed in person. WOUND CARE: Showers are acceptable. The patient should pat the incision dry, but not submerge under the surface of any body of water for 2 months. Job ID: [id number]
== END 2019-08-11 10:45 | disposition home or self-care (01) | DRG 30 ==
LOC: SURG A 14:18 → MERGE 14:18
PROVIDERS: ADMIT Neurological Surgery; ATTEND Neurological Surgery
PROC: 009U30Z Drainage of Spinal Canal with Drainage Device, Percutaneous Approach (ICD-10-PCS; 2019-08-01)
PROC: B01BZZZ Fluoroscopy of Spinal Cord (ICD-10-PCS; 2019-08-01)
PROC: 02H633Z Insertion of Infusion Device into Right Atrium, Percutaneous Approach (ICD-10-PCS; 2019-08-09)
PROC: B548ZZA Ultrasonography of Superior Vena Cava, Guidance (ICD-10-PCS; 2019-08-09)
PROC: 00160J6 Bypass Cerebral Ventricle to Peritoneal Cavity with Synthetic Substitute, Open Approach (ICD-10-PCS; principal; 2019-08-11)
PROC: 00UT0JZ Supplement Spinal Meninges with Synthetic Substitute, Open Approach (ICD-10-PCS; 2019-08-11)
DX: G97.82 Other postprocedural complications and disorders of nervous system (principal); G96.19 Other disorders of meninges, not elsewhere classified; G93.2 Benign intracranial hypertension; J45.909 Unspecified asthma, uncomplicated; I10 Essential (primary) hypertension; K21.9 Gastro-esophageal reflux disease without esophagitis; Y83.8 Other surgical procedures as the cause of abnormal reaction of the patient, or of later complication, without mention of misadventure at the time of the procedure; Z87.728 Personal history of other specified (corrected) congenital malformations of nervous system and sense organs; Z79.899 Other long term (current) drug therapy; Z90.710 Acquired absence of both cervix and uterus; Z88.6 Allergy status to analgesic agent; Z88.8 Allergy status to other drugs, medicaments and biological substances; Z88.5 Allergy status to narcotic agent; Z88.0 Allergy status to penicillin; Z88.2 Allergy status to sulfonamides; Z91.041 Radiographic dye allergy status
CPT/HCPCS: 36415; 36416; 36569; 62270; 70450; 75989; 80048; 85025; 87070; 87086; 87205; 94664; C1751; J0690; J1200; J1644; J1885; J2001; J2270; J2370; J2405; J2550; J2704; J3010; J3370; J3490; Q0163; Q0169